=== PATIENT | male | born 1985 | race Caucasian/White ===

== ENCOUNTER 2016-08-16 04:41 | Inpatient (IN) | payer BC ==
[~2016-08-16] VITALS: Ht 188 cm; Wt 116.8 kg
[~2016-08-16 04:41] MED LIST: EPP3/2 IM
[2016-08-16] MEDS ORDERED: ALBUT/IPRATROP 3MG/0.5MG NEB 3 ML VIAL INH STA ×2 (05:02→06:13)
[2016-08-16] MEDS ORDERED: SODIUM CHLORIDE 0.9% 1000ML 1,000 ML IV STA (05:02)
[2016-08-16] MEDS ORDERED: METHYLPREDNISOLONE 125 MG VIAL IV STA (05:02)
[2016-08-16 05:58] LABS: BASO % 0.2 %; BASO ABS # 0.02 K/uL (0-0.2); COMPLETE YES; EOS % 2.2 %; HEMATOCRIT 41.2 % (42-52); IG% 0.2 %; LYMPH ABS # 0.61 K/uL (1.2-3.4); MEAN CELL VOLUME 80.9 fL (80-100); MEAN CORPUSCULAR HEMOGLOBIN 27.9 pg (25-34); MEAN CORPUSCULAR HGB CONC 34.5 g/dl (32-36); MEAN PLATELET VOLUME 9.6 fL (7.4-10.4); MONO % 8.4 %; PLATELET COUNT 215 K/uL (130-400); RED BLOOD COUNT 5.09 M/uL (4.7-6.1)
[2016-08-16 06:10] LABS: PARTIAL THROMBOPLASTIN RATIO 1.2; PROTHROMBIN TIME (PATIENT) 10.8 SECONDS (9.0-12.0)
[2016-08-16] MEDS ORDERED: CEFTRIAXONE SOD INJ 1 GM ADDVIAL IV STA (06:11)
[2016-08-16] MEDS ORDERED: OPTIRAY 320 IV PRN (06:15)
[2016-08-16] MEDS ORDERED: AZITHROMYCIN IV 500 MG in DEXTROSE 5% 250ML 250 ML IV ONE (06:15)
[2016-08-16 06:18] LABS: ALT/SGPT 48 U/L (12-78); AST/SGOT 19 U/L (15-37); BLOOD UREA NITROGEN 14 mg/dl (7-18); BUN/CREATININE RATIO 11.7 (10-20); CALCIUM 8.7 mg/dl (8.5-10.1); CARBON DIOXIDE 27 mmol/L (21-32); CHLORIDE 104 mmol/L (98-107); GLUCOSE 105 mg/dl (70-99); MAGNESIUM 2.4 mg/dl (1.8-2.4); POTASSIUM 4.1 mmol/L (3.5-5.1); SODIUM 140 mmol/L (136-145)
[2016-08-16 06:27] LABS: ALB/GLOB RATIO 0.8 (0.9-2); ALKALINE PHOSPHATASE 74 U/L (45-117)
--- NOTE | 2016-08-16 06:33 | DIAGNOSTIC IMAGING REPORT ---
TWO VIEW CHEST CLINICAL HISTORY: Dyspnea. Hypoxia. FINDINGS: PA and lateral chest radiographs are compared to study dated 03/16/2013. The cardiac silhouette is top normal for projection. There is patchy airspace consolidation the left mid to lower lung. Consolidation is also seen in the right middle lobe. No pleural effusion or pneumothorax is seen. The bony thorax appears intact. IMPRESSION: There is patchy airspace consolidation in the left mid to lower lung as well as the right middle lobe. The appearance suggests multifocal pneumonia. Clinical correlation will be required. Radiographic follow-up to resolution is recommended. Electronically signed by: Emmanuel Clements M.D. 08/16/2016 6:31 AM Dictated Date/Time: 08/16/2016 6:29 AM
--- NOTE | 2016-08-16 07:23 | DIAGNOSTIC IMAGING REPORT ---
CT ANGIOGRAM OF THE CHEST CLINICAL HISTORY: Chest congestion and pneumonia. COMPARISON STUDY: Chest x-ray dated 08/16/2016. TECHNIQUE: Following the IV administration of 93 cc of Optiray 320, CT angiogram of the chest was performed from the upper abdomen to the thoracic inlet utilizing the pulmonary embolus protocol. Images are reviewed in the axial, sagittal, and coronal planes. 3-D MIPS images are created and assessed. IV contrast was administered without complication. The examination is degraded by streak artifact from the right arm which could not be elevated above the chest. The examination is also degraded by motion artifact. CT DOSE: 623.66 mGy.cm FINDINGS: Thyroid: Imaged portions of the thyroid gland are normal in size and attenuation. Thoracic aorta: The thoracic aorta is normal in caliber and demonstrates standard 3-vessel arch anatomy. No aneurysm or dissection is seen. Pulmonary vasculature: The pulmonary trunk is normal in caliber. There are no filling defects identified in main, lobar, or proximal segmental pulmonary branches to suggest pulmonary embolus. Evaluation of the peripheral branches is degraded by motion artifact. Heart: The heart is normal in size and configuration, and without pericardial effusion. Lungs and pleural spaces: There is dense patchy airspace consolidation in the left upper lobe and lingula as well as the left lower lobe. More patchy airspace consolidation is present in the right upper and right lower lobes. There are trace pleural effusions. The trachea and central airways are clear. Mediastinum: There is no mediastinal lymphadenopathy. Shae: There are enlarged bilateral hilar lymph nodes which measure up to 1.3 cm in short axis. Axillae: There is no axillary lymphadenopathy. Upper abdomen: Partially visualized upper abdominal viscera is within normal limits. Skeletal structures: No lytic or blastic bony lesions are seen. IMPRESSION: 1. There is no evidence of pulmonary embolus in the main, lobar, or proximal segmental pulmonary arteries. 2. Findings are consistent with multifocal pneumonia as detailed above, left greater than right. Radiographic follow-up to resolution is recommended. 3. Trace pleural effusions. 4. Enlarged hilar lymph nodes are likely on a reactive basis. Electronically signed by: Emmanuel Clements M.D. 08/16/2016 7:21 AM Dictated Date/Time: 08/16/2016 7:17 AM
--- NOTE | 2016-08-16 07:38 | EMERGENCY ROOM VISIT NOTE ---
History First contact with patient: 04:54 Chief Complaint: CONGESTION Stated Complaint: CHEST CONGESTION Nursing Triage Summary: After first duoneb. History of Present Illness The patient is a 31 year old male who presents to the Emergency Department by private vehicle for evaluation of his difficulty with breathing and chest congestion. He reports that on Wednesday he developed a mild cough. He was out of town working in [place] and reports that he treated his symptoms conservatively as he felt that he would get better without issue. On he reported increasing cough and associated shortness of breath. He is also has been complaining of some ear pressure as well. He denies any recent sick contacts. He has had no fevers. He reports ongoing body aches. He has coughed to the point of becoming lightheaded and developing headaches. He reports no chest pain, however. He rates his current discomfort as a 1/10. He is been coughing up greenish sputum as well. He does admit to smoking daily. There is no family history of blood clots or bleeding disorders. He denies any blurry vision, double vision, slurred speech, facial droop, unilateral weakness/ numbness, chest pain, palpitations, hemoptysis, nausea, vomiting, abdominal pain , diarrhea, or dysuria. Review of Systems A complete 10-point Review of Systems was discussed with the patient, with pertinent positives and negatives listed in the History of Present Illness. All remaining Review of Systems questions can be considered negative unless otherwise specified. Past Medical/Surgical History Medical Problems: (1) Fatty liver (2) Gastroesophageal reflux disease (3) Hyperlipidemia Social History Smoking Status: Current Every Day Smoker Alcohol Use: none Drug Use: none Marital Status: in relationship Housing Status: lives with family Occupation Status: employed Current/Historical Medications Scheduled PRN Epinephrine (Epipen), 0.3 MG IM UD PRN for ALLERGIC REACTION Allergies Coded Allergies: Milk (Verified Allergy, Intermediate, GI SYMPTOMS, 08/16/16) BEE STING (Verified Allergy, Unknown, swelling, 08/16/16) Physical Exam Vital Signs Date Time Temp Pulse Resp B/P Pulse Ox O2 Delivery O2 Flow Rate FiO2 08/16/16 09:03 36.9 104 20 142/78 92 Nasal Cannula 2.0 08/16/16 08:46 93 18 137/80 93 Nasal Cannula 2.0 08/16/16 08:22 95 Nasal Cannula 2.0 08/16/16 07:29 107 08/16/16 07:11 110 24 137/74 95 Nasal Cannula 2.0 08/16/16 06:39 105 25 137/81 95 Nasal Cannula 3.0 08/16/16 05:00 104 08/16/16 04:52 92 Nasal Cannula 2.0 08/16/16 04:52 91 Nasal Cannula 2.0 08/16/16 04:45 88 Room Air 08/16/16 04:45 37.4 111 20 125/73 88 Room Air Pain Rating (0-10): 1 Physical Exam VITAL SIGNS - Vital signs and nursing notes were reviewed. GENERAL - Well nourished, well developed 31-year-old male appearing his in no acute distress. Pt communicates well with provider and answers questions appropriately. SKIN - Without rash. HEAD - NC/AT with no obvious deformities. EYES - PERRL with EOMI bilaterally. Sclera without injection. Palpebral conjunctiva pink and moist. EARS - No deformities of external structures noted on gross examination bilaterally. No pain elicited with palpation of the tragus bilaterally. External auditory canals without discharge or otorrhea. Tympanic membranes pearly hope without retraction or bulging. No fluid or purulent material visualized behind the TM. Handle of malleus, umbo, cone of light, pars tensa/ flaccid all easily visualized. NOSE - Midline and without cyanosis. No purulent drainage noted. Nasal mucosa with mild mucus discharge. MOUTH/OROPHARYNX - Without perioral cyanosis. Buccal mucosa pink and moist\ and without leukoplakia. Tongue midline with equal elevation of palate bilaterally. No tonsillar hypertrophy, erythema, or exudates noted. NECK - Neck with FROM. Supple to palpation. no lymphadenopathy noted. No nuchal rigidity. LUNGS - Chest wall symmetric with mild accessory muscle use. Tachypneic. Decreased breath sounds at the lung bases bilaterally. Inspiratory wheezes noted in the upper lung knapp. Positive egophony and whispered pectoriloquy noted to the LEFT mid axillary line. CARDIAC - RRR with S1/S2. No murmur, rubs, or gallops appreciated. ABDOMEN - Abdominal contour flat without pulsations or visible masses. BS normoactive all four quadrants. No tenderness, palpable masses, hepatosplenomegaly, or ascites noted. Medical Decision & Procedures ER Provider Diagnostic Interpretation: Radiological imaging and reports were reviewed by myself. Radiologist's Interpretation as follows: TWO VIEW CHEST CLINICAL HISTORY: Dyspnea. Hypoxia. FINDINGS: PA and lateral chest radiographs are compared to study dated 03/16/2013. The cardiac silhouette is top normal for projection. There is patchy airspace consolidation the left mid to lower lung. Consolidation is also seen in the right middle lobe. No pleural effusion or pneumothorax is seen. The bony thorax appears intact. IMPRESSION: There is patchy airspace consolidation in the left mid to lower lung as well as the right middle lobe. The appearance suggests multifocal pneumonia. Clinical correlation will be required. Radiographic follow-up to resolution is recommended. CT ANGIOGRAM OF THE CHEST CLINICAL HISTORY: Chest congestion and pneumonia. COMPARISON STUDY: Chest x-ray dated 08/16/2016. TECHNIQUE: Following the IV administration of 93 cc of Optiray 320, CT angiogram of the chest was performed from the upper abdomen to the thoracic inlet utilizing the pulmonary embolus protocol. Images are reviewed in the axial, sagittal, and coronal planes. 3-D MIPS images are created and assessed. IV contrast was administered without complication. The examination is degraded by streak artifact from the right arm which could not be elevated above the chest. The examination is also degraded by motion artifact. CT DOSE: 623.66 mGy.cm FINDINGS: Thyroid: Imaged portions of the thyroid gland are normal in size and attenuation. Thoracic aorta: The thoracic aorta is normal in caliber and demonstrates standard 3-vessel arch anatomy. No aneurysm or dissection is seen. Pulmonary vasculature: The pulmonary trunk is normal in caliber. There are no filling defects identified in main, lobar, or proximal segmental pulmonary branches to suggest pulmonary embolus. Evaluation of the peripheral branches is degraded by motion artifact. Heart: The heart is normal in size and configuration, and without pericardial effusion. Lungs and pleural spaces: There is dense patchy airspace consolidation in the left upper lobe and lingula as well as the left lower lobe. More patchy airspace consolidation is present in the right upper and right lower lobes. There are trace pleural effusions. The trachea and central airways are clear. Mediastinum: There is no mediastinal lymphadenopathy. Shae: There are enlarged bilateral hilar lymph nodes which measure up to 1.3 cm in short axis. Axillae: There is no axillary lymphadenopathy. Upper abdomen: Partially visualized upper abdominal viscera is within normal limits. Skeletal structures: No lytic or blastic bony lesions are seen. IMPRESSION: 1. There is no evidence of pulmonary embolus in the main, lobar, or proximal segmental pulmonary arteries. 2. Findings are consistent with multifocal pneumonia as detailed above, left greater than right. Radiographic follow-up to resolution is recommended. 3. Trace pleural effusions. 4. Enlarged hilar lymph nodes are likely on a reactive basis. Laboratory Results 08/16/16 05:25 Red Blood Count 5.09, Mean Corpuscular Volume 80.9, Mean Corpuscular Hemoglobin 27.9, Mean Corpuscular Hemoglobin Concent 34.5, Mean Platelet Volume 9.6, Neutrophils (%) (Auto) 82.0, Lymphocytes (%) (Auto) 7.0, Monocytes (%) (Auto) 8.4, Eosinophils (%) (Auto) 2.2, Basophils (%) (Auto) 0.2, Neutrophils # (Auto) 7.13, Lymphocytes # (Auto) 0.61, Monocytes # (Auto) 0.73, Eosinophils # (Auto) 0.19, Basophils # (Auto) 0.02 08/16/16 05:25 Test 08/16/16 00:00 08/16/16 05:25 08/16/16 05:29 08/16/16 05:50 Influenza Type A Antigen Neg for Influ A (NEG) Influenza Type B Antigen Neg for Influ B (NEG) White Blood Count 8.70 K/uL (4.8-10.8) Red Blood Count 5.09 M/uL (4.7-6.1) Hemoglobin 14.2 g/dL (14.0-18.0) Hematocrit 41.2 % (42-52) Mean Corpuscular Volume 80.9 fL (80-100) Mean Corpuscular Hemoglobin 27.9 pg (25-34) Mean Corpuscular Hemoglobin Concent 34.5 g/dl (32-36) Platelet Count 215 K/uL (130-400) Mean Platelet Volume 9.6 fL (7.4-10.4) Neutrophils (%) (Auto) 82.0 % Lymphocytes (%) (Auto) 7.0 % Monocytes (%) (Auto) 8.4 % Eosinophils (%) (Auto) 2.2 % Basophils (%) (Auto) 0.2 % Neutrophils # (Auto) 7.13 K/uL (1.4-6.5) Lymphocytes # (Auto) 0.61 K/uL (1.2-3.4) Monocytes # (Auto) 0.73 K/uL (0.11-0.59) Eosinophils # (Auto) 0.19 K/uL (0-0.5) Basophils # (Auto) 0.02 K/uL (0-0.2) RDW Standard Deviation 40.7 fL (36.4-46.3) RDW Coefficient of Variation 13.6 % (11.5-14.5) Immature Granulocyte % (Auto) 0.2 % Immature Granulocyte # (Auto) 0.02 K/uL (0.00-0.02) Prothrombin Time 10.8 SECONDS (9.0-12.0) Prothromb Time International Ratio 1.0 (0.9-1.1) Activated Partial Thromboplast Time 32.1 SECONDS (21.0-31.0) Partial Thromboplastin Ratio 1.2 Anion Gap 9.0 mmol/L (3-11) Est Creatinine Clear Calc Drug Dose 121.2 ml/min Estimated GFR () 92.8 Estimated GFR (Non- 80.1 BUN/Creatinine Ratio 11.7 (10-20) Calcium Level 8.7 mg/dl (8.5-10.1) Magnesium Level 2.4 mg/dl (1.8-2.4) Total Bilirubin 0.7 mg/dl (0.2-1) Aspartate Amino Transf (AST/SGOT) 19 U/L (15-37) Alanine Aminotransferase (ALT/SGPT) 48 U/L (12-78) Alkaline Phosphatase 74 U/L (45-117) Total Creatine Kinase 171 U/L (39-308) Creatine Kinase MB < 0.5 ng/ml (0.5-3.6) Creatine Kinase MB Ratio (0-3.0) C-Reactive Protein 12.90 mg/dl (0-0.29) Total Protein 7.5 gm/dl (6.4-8.2) Albumin 3.4 gm/dl (3.4-5.0) Globulin 4.1 gm/dl (2.5-4.0) Albumin/Globulin Ratio 0.8 (0.9-2) Lipase 168 U/L (73-393) Procalcitonin 0.09 ng/mL (0-0.5) Thyroid Stimulating Hormone (TSH) 1.040 uIu/ml (0.300-4.500) Bedside Lactic Acid Venous 0.68 mmol/L (0.90-1.70) Bedside D-Dimer > 450 ng/mlFEU (0-450) Bedside Troponin I 0.000 ng/ml (0-0.045) Test 08/16/16 07:30 Urine Color YELLOW Urine Appearance CLEAR (CLEAR) Urine pH 5.0 (4.5-7.5) Urine Specific [place] 1.039 (1.000-1.030) Urine Protein NEG (NEG) Urine Glucose (UA) NEG (NEG) Urine Ketones NEG (NEG) Urine Occult Blood NEG (NEG) Urine Nitrite NEG (NEG) Urine Bilirubin NEG (NEG) Urine Urobilinogen NEG (NEG) Urine Leukocyte Esterase NEG (NEG) Medications Administered Medications (Trade) Dose Ordered Sig/Donavon Route Start Time Stop Time Status Last Admin Dose Admin Sodium Chloride (Nss 1000ml) 1,000 ml @ 999 mls/hr Q1H1M STAT IV 08/16/16 05:02 08/16/16 06:02 DC 08/16/16 05:28 999 MLS/HR Albuterol/ Ipratropium (Duoneb) 3 ml NOW STAT INH 08/16/16 05:02 08/16/16 05:05 DC 08/16/16 05:28 3 ML Methylprednisolone Sodium Succinate (Solu-Medrol IV) 125 mg NOW STAT IV 08/16/16 05:02 08/16/16 05:05 DC 08/16/16 05:28 125 MG Ceftriaxone Sodium 1 gm 1 gm NOW STAT IV 08/16/16 06:11 08/16/16 06:13 DC 08/16/16 06:24 1 GM Azithromycin/ Dextrose (Zithromax IV/D5 250ml) 255 ml @ 125 mls/hr ONE ONCE IV 08/16/16 06:15 08/16/16 08:17 DC 08/16/16 07:49 125 MLS/HR Albuterol/ Ipratropium (Duoneb) 3 ml NOW STAT INH 08/16/16 06:13 08/16/16 06:14 DC 08/16/16 06:24 3 ML Procedure Patient was placed on the diagnostic cardiac sonographer and monitored throughout the entire extent of their stay. In addition, the patient's pulse oximetry was monitored throughout the entire stay. Any abnormalities or aberrancies were addressed appropriately. ECG Indication: SOB/dyspnea Rate (beats per minute): 107 Rhythm: sinus tachycardia Findings: no acute ischemic change, no ectopy Change: no significant change (from 05/09/2013.) ED Course Patient was seen and evaluated by myself. Labs were drawn, saline lock in place. EKG and chest x-rays were obtained. The patient was placed on 2 L nasal cannula secondary to hypoxia with an oxygen saturation of 88% on room air. Blood cultures were obtained. Patient was hydrated with a 1000 mL normal saline bolus. He received 1 DuoNeb and was treated with 125 mg Solu-Medrol intravenously. Patient was reevaluated and has slight more air movement in the lower bases of the lungs with increasing wheezing. He is still mildly tachypneic. Chest x-ray results concerning for bilateral pneumonia. Patient was treated with 1 g of Rocephin and 500 mg azithromycin. Laboratory results demonstrate no acute leukocytosis, worrisome anemia, or bandemia. The patient has no significant electrolyte abnormalities. CRP is minimally elevated. Troponin and cardiac enzymes were negative. Influenza is negative. Lactic acid was negative. D-dimer was moderately elevated. CTA of the chest was obtained. He was treated with a second DuoNeb for his breathing. Patient had increasing breath sounds and mildly increased wheeze after second breathing treatment. He feels much better. Clinically, the patient looks much better. CTA results above. Laboratory results and imaging studies were reviewed with the patient and family who acknowledges understanding. Patient will be admitted to the [facility] service for further evaluation and management. Patient admitted in stable condition. Medical Decision Given the patient's presentation and exam findings, I did elect to perform the above-mentioned workup. The patient presents today with increasing shortness of breath and cough. The patient is hypoxic. He is tachycardic. He is not febrile. He has no leukocytosis. His chest x-ray was concerning for consolidated LEFT-sided pneumonia and possible RIGHT-sided pneumonia as well. He was aggressively managed with intravenous antibiotics given his significant pneumonia with associated hypoxia. The patient took 2 DuoNeb treatments until he was with better movement of air. He still remains mildly tachypneic. CTA rules out vascular abnormality, however does suggest worsening multifocal pneumonia. At this point, the patient warrants inpatient management for IV antibiotics, steroids, and continued pulmonary toilet. The patient was admitted in stable condition. In the evaluation and treatment of this patient, the following differential diagnoses were considered: DE, ASC, Dysrhythmia, Angina, Mediastinitis, GERD, Esophagitis, PE, Pneumonia, Bronchitis, Costochondritis, Rib Fracture, Zoster. Impression Primary Impression: Multifocal pneumonia Additional Impression: Hypoxia Departure Information Dispostion Admitted as an inpatient Condition FAIR Referrals No Doctor, Assigned (PCP) Patient Instructions [facility] Problem Qualifiers
[2016-08-16 07:46] LABS: URINE APPEARANCE CLEAR (CLEAR); URINE BILIRUBIN NEG (NEG); URINE COLOR YELLOW; URINE NITRITE NEG (NEG); URINE SPECIFIC GRAVITY 1.039 (1.000-1.030); UROBILINOGEN NEG (NEG); ZZUR CULT IF INDIC CLEAN CATCH NO
[2016-08-16 07:52] LABS: MANUAL MICROSCOPIC REQUIRED? NO; REVIEW REQ? NO
[2016-08-16] MEDS ORDERED: ALBUTEROL 0.083% NEBU SOLN 3 ML VIAL INH PRN (08:00)
[2016-08-16] MEDS ORDERED: ACETAMINOPHEN 325 MG TAB PO PRN (08:00)
[2016-08-16] MEDS ORDERED: ONDANSETRON INJ 2 MG/ML 2 ML VIAL IV PRN (08:00)
[2016-08-16 08:22] VITALS: O2SAT 95; Ht 188 cm; Wt 116.8 kg
[2016-08-16 09:03] VITALS: BP 142/78; PULSE 104; TEMP 36.9; O2SAT 92
[2016-08-16] MEDS: NICOTINE 14 MG/24 HR TDSY TD SCH (12:58)
[2016-08-16] MEDS: ENOXAPARIN 40 MG/0.4 ML SYR SQ SCH (12:59)
[2016-08-16 15:33] VITALS: BP 150/88; PULSE 115; TEMP 36.3; O2SAT 91
--- NOTE | 2016-08-16 15:43 | History and Physical ---
History & Physical Date & Time of Service: Aug 16, 2016 at 15:32 Chief Complaint: Multifocal Pneumonia Primary Care Physician: No Doctor, Assigned History of Present Illness Source: patient, hospital records Patient is a 31 y/o male who presents with worsening SOB over the past couple of days. Patient notes worsening SOB, cough and body aches for the past several days. He used his mother's albuterol inhaler without significant relief of symptoms. He denies any fevers, chills, nausea, vomiting, diarrhea. In the ED, CT chest was notable for multifocal pneumonia. Patient was given a nebulizer, methylprednisolone, ceftriaxone and azithromycin. Past Medical/Surgical History Medical Problems: (1) Fatty liver Status: Chronic (2) Gastroesophageal reflux disease Status: Chronic (3) Hyperlipidemia Status: Chronic Social History Smoking Status: Current Every Day Smoker Drug Use: none Marital Status: in relationship Occupational Status: employed Multi-Drug Resistant Organisms History of MDRO: No Allergies Coded Allergies: Milk (Verified Allergy, Intermediate, GI SYMPTOMS, 08/16/16) BEE STING (Verified Allergy, Unknown, swelling, 08/16/16) Home Medications Scheduled PRN Epinephrine (Epipen), 0.3 MG IM UD PRN for ALLERGIC REACTION Review of Systems Constitutional- denies fevers or chills Eyes- denies blurry vision or double vision ENT- denies congestion or sore throat Pulmonary- +SOB and cough Cardiac- denies chest pain or palpitations GI- denies abdominal pain, nausea, vomiting, diarrhea - denies dysuria or hematuria Musculoskeletal- denies joint pain or swelling Dermatologic- denies rash or bruising Neuro- denies focal weakness, numbness or tingling Psych- denies depression or anxiety . Physical Exam Vital Signs Date Time Temp Pulse Resp B/P Pulse Ox O2 Delivery O2 Flow Rate FiO2 08/16/16 09:10 Nasal Cannula 2.0 08/16/16 09:03 36.9 104 20 142/78 92 Nasal Cannula 2.0 08/16/16 08:46 93 18 137/80 93 Nasal Cannula 2.0 08/16/16 08:22 95 Nasal Cannula 2.0 08/16/16 07:29 107 08/16/16 07:11 110 24 137/74 95 Nasal Cannula 2.0 08/16/16 06:39 105 25 137/81 95 Nasal Cannula 3.0 08/16/16 05:00 104 1/15/17 04:52 92 Nasal Cannula 2.0 08/16/16 04:52 91 Nasal Cannula 2.0 08/16/16 04:45 88 Room Air 08/16/16 04:45 37.4 111 20 125/73 88 Room Air General- awake; alert; NAD Eyes- EOMI; no scleral icterus Neck- no stridor; trachea midline Lungs- diminished breath sounds at the bases Heart- RRR; no m/r/g Abdomen- soft; NTND; nBS Back- no gross abnormalities Extremities- no c/c/e; no deformity Neuro- no gross focal deficits Skin- no appreciable rash or bruise . Diagnostics Laboratory Results Results Past 24 Hours Test 08/16/16 00:00 08/16/16 05:25 08/16/16 05:29 08/16/16 05:50 Range/Units Influenza Type A Antigen Neg for Influ A NEG Influenza Type B Antigen Neg for Influ B NEG White Blood Count 8.70 4.8-10.8 K/uL Red Blood Count 5.09 4.7-6.1 M/uL Hemoglobin 14.2 14.0-18.0 g/dL Hematocrit 41.2 42-52 % Mean Corpuscular Volume 80.9 80-100 fL Mean Corpuscular Hemoglobin 27.9 25-34 pg Mean Corpuscular Hemoglobin Concent 34.5 32-36 g/dl Platelet Count 215 130-400 K/uL Mean Platelet Volume 9.6 7.4-10.4 fL Neutrophils (%) (Auto) 82.0 % Lymphocytes (%) (Auto) 7.0 % Monocytes (%) (Auto) 8.4 % Eosinophils (%) (Auto) 2.2 % Basophils (%) (Auto) 0.2 % Neutrophils # (Auto) 7.13 1.4-6.5 K/uL Lymphocytes # (Auto) 0.61 1.2-3.4 K/uL Monocytes # (Auto) 0.73 0.11-0.59 K/uL Eosinophils # (Auto) 0.19 0-0.5 K/uL Basophils # (Auto) 0.02 0-0.2 K/uL RDW Standard Deviation 40.7 36.4-46.3 fL RDW Coefficient of Variation 13.6 11.5-14.5 % Immature Granulocyte % (Auto) 0.2 % Immature Granulocyte # (Auto) 0.02 0.00-0.02 K/uL Prothrombin Time 10.8 9.0-12.0 SECONDS Prothromb Time International Ratio 1.0 0.9-1.1 Activated Partial Thromboplast Time 32.1 21.0-31.0 SECONDS Partial Thromboplastin Ratio 1.2 Sodium Level 140 136-145 mmol/L Potassium Level 4.1 3.5-5.1 mmol/L Chloride Level 104 98-107 mmol/L Carbon Dioxide Level 27 21-32 mmol/L Anion Gap 9.0 3-11 mmol/L Blood Urea Nitrogen 14 7-18 mg/dl Creatinine 1.20 0.60-1.40 mg/dl Est Creatinine Clear Calc Drug Dose 121.2 ml/min Estimated GFR () 92.8 Estimated GFR (Non- 80.1 BUN/Creatinine Ratio 11.7 10-20 Random Glucose 105 70-99 mg/dl Calcium Level 8.7 8.5-10.1 mg/dl Magnesium Level 2.4 1.8-2.4 mg/dl Total Bilirubin 0.7 0.2-1 mg/dl Aspartate Amino Transf (AST/SGOT) 19 15-37 U/L Alanine Aminotransferase (ALT/SGPT) 48 12-78 U/L Alkaline Phosphatase 74 45-117 U/L Total Creatine Kinase 171 39-308 U/L Creatine Kinase MB < 0.5 0.5-3.6 ng/ml Creatine Kinase MB Ratio 0-3.0 C-Reactive Protein 12.90 0-0.29 mg/dl Total Protein 7.5 6.4-8.2 gm/dl Albumin 3.4 3.4-5.0 gm/dl Globulin 4.1 2.5-4.0 gm/dl Albumin/Globulin Ratio 0.8 0.9-2 Lipase 168 73-393 U/L Procalcitonin 0.09 0-0.5 ng/mL Thyroid Stimulating Hormone (TSH) 1.040 0.300-4.500 uIu/ml Bedside Lactic Acid Venous 0.68 0.90-1.70 mmol/L Bedside D-Dimer > 450 0-450 ng/mlFEU Bedside Troponin I 0.000 0-0.045 ng/ml Test 08/16/16 07:30 Range/Units Urine Color YELLOW Urine Appearance CLEAR CLEAR Urine pH 5.0 4.5-7.5 Urine Specific Economy 1.039 1.000-1.030 Urine Protein NEG NEG Urine Glucose (UA) NEG NEG Urine Ketones NEG NEG Urine Occult Blood NEG NEG Urine Nitrite NEG NEG Urine Bilirubin NEG NEG Urine Urobilinogen NEG NEG Urine Leukocyte Esterase NEG NEG Microbiology Results 08/16/16 Blood Culture, Received Pending 08/16/16 Blood Culture, Received Pending Diagnostic Radiology CT Chest 1. There is no evidence of pulmonary embolus in the main, lobar, or proximal segmental pulmonary arteries. 2. Findings are consistent with multifocal pneumonia as detailed above, left greater than right. Radiographic follow-up to resolution is recommended. 3. Trace pleural effusions. 4. Enlarged hilar lymph nodes are likely on a reactive basis. Normal EKG Impression Assessment and Plan Patient is a 31 y/o male who presents with worsening SOB and cough. Multifocal pneumonia - noted on CT chest - continue azithromycin and ceftriaxone - received dose of methylprednisolone in ED; will not continue - continue nebulizer PRN - wean supplemental oxygen as able Tobacco use - nicotine patch - smoking cessation DVT prophylaxis with enoxaparin sq Advanced Directives Existing Advance Directive: No Existing Living Will: No Existing Power of Nurses' Registry Director: No VTE Prophylaxis VTE Risk Assessment Done? Y/N: Yes Risk Level: Low
[2016-08-16 17:59] VITALS: PULSE 84; O2SAT 94
[2016-08-16 21:10] VITALS: BP 123/72; PULSE 68
[2016-08-16 23:28] VITALS: BP 148/87; PULSE 69; TEMP 36.8; O2SAT 96
[2016-08-17] MEDS: NICOTINE 14 MG/24 HR TDSY TD SCH (07:28)
[2016-08-17] MEDS: AZITHROMYCIN 250 MG TAB PO SCH (07:28)
[2016-08-17] MEDS: CEFTRIAXONE SOD INJ 1 GM in DEXTROSE 5% ADD-VANTAGE 50ML 50 ML IV SCH (07:28)
[2016-08-17 07:39] VITALS: BP 124/75; PULSE 82; TEMP 36.7; O2SAT 91
[2016-08-17] MEDS ORDERED: GUAIFENESIN/CODEINE 100MG/10MG 5ML UDC PO PRN (10:15)
[2016-08-17] MEDS ORDERED: GUAIFENESIN 600 MG TABCR PO SCH (10:15)
[2016-08-17] MEDS: GUAIFENESIN 600 MG TABCR PO SCH ×2 (11:04→21:10)
[2016-08-17] MEDS ORDERED: COUGH DROP (SUGAR FREE) LOZ 24 LOZ/1 BOX ONE (11:07)
[2016-08-17] MEDS ORDERED: COUGH DROP (SUGAR FREE) LOZ 24 LOZ/1 BOX PO PRN (11:15)
[2016-08-17] MEDS ORDERED: NURSING DECISION MEDICATION ORDER SCH (11:15)
[2016-08-17 12:55] VITALS: O2SAT 92
--- NOTE | 2016-08-17 13:35 | Progress Note ---
Medicine Progress Note Date & Time of Visit: Aug 17, 2016 at 13:27. Subjective Patient seen and examined. Feeling a bit better today. Cough has somewhat improved. Still notes ROSE with minimal activity. Objective Last 8 Hrs Date Time Temp Pulse Resp B/P Pulse Ox O2 Delivery O2 Flow Rate FiO2 08/17/16 12:55 92 Nasal Cannula 1.0 08/17/16 08:00 Nasal Cannula 2.0 08/17/16 07:39 36.7 82 26 124/75 91 Physical Exam: General-awake; alert; NAD Eyes-EOMI; no scleral icterus Neck-no stridor; trachea midline Lungs-bibasilar crackles Heart-RRR; no m/r/g Abdomen-soft; NTND; nBS Extremities-no c/c/e; no deformity Neuro-no gross focal deficits Assessment & Plan Patient is a 31 y/o male who presented with worsening SOB and cough. Multifocal pneumonia - noted on CT chest - continue azithromycin and ceftriaxone (started 08/16/16) - received dose of methylprednisolone in ED; will not continue - continue nebulizer PRN - wean supplemental oxygen as able - cough suppressants and expectorants Tobacco use - nicotine patch - smoking cessation DVT prophylaxis with enoxaparin sq Anticipate possible discharge tomorrow. Procedures: CT chest 1. There is no evidence of pulmonary embolus in the main, lobar, or proximal segmental pulmonary arteries. 2. Findings are consistent with multifocal pneumonia as detailed above, left greater than right. Radiographic follow-up to resolution is recommended. 3. Trace pleural effusions. 4. Enlarged hilar lymph nodes are likely on a reactive basis. Current Inpatient Medications: Current Inpatient Medications Medications (Trade) Dose Ordered Sig/Donavon Route Start Time Stop Time Status Last Admin Dose Admin Ioversol (Optiray 320) 100 ml UD PRN IV 08/16/16 06:15 08/20/16 06:14 Enoxaparin Sodium (Lovenox Inj) 40 mg Q24H SQ 08/16/16 14:00 09/15/16 13:59 Acetaminophen (Tylenol Tab) 650 mg Q4H PRN PO 08/16/16 08:00 09/15/16 07:59 Ondansetron HCl 4 mg 4 mg Q6H PRN IV 08/16/16 08:00 09/15/16 07:59 Ceftriaxone Sodium/Dextrose (Rocephin Inj/ Dextrose Add-Revere 50ML) 50 ml @ 100 mls/hr Q24H IV 08/17/16 08:00 08/24/16 07:59 08/17/16 07:28 100 MLS/HR Azithromycin (Zithromax Tab) 500 mg QAM PO 08/17/16 09:00 08/24/16 08:59 08/17/16 07:28 500 MG Albuterol Sulfate (Ventolin 0.083% 2.5MG/3ML Neb) 2.5 mg Q6R PRN INH 08/16/16 08:00 09/15/16 07:59 08/16/16 17:59 2.5 MG Benzonatate (Tessalon Perles Cap) 100 mg TID PO 08/17/16 14:00 09/16/16 13:59 Codeine Phosphate/ Guaifenesin (Robitussin-AC Sugar Free Syrup) 5 ml Q6H PRN PO 08/17/16 10:15 09/16/16 10:14 Guaifenesin (Mucinex Contr Rel Tab) 600 mg Q12 PO 08/17/16 11:00 09/16/16 10:59 08/17/16 11:04 600 MG Nicotine (Nicoderm Cq 14MG Patch) 1 patch QAM TD 08/18/16 09:00 09/17/16 08:59 Miscellaneous (Remove Nicoderm Patch) 1 ea HS N/A 08/17/16 21:00 09/16/16 20:59 Menthol (Nice Jose Alberto) 1 jsoe alberto PRN PRN PO 08/17/16 11:15 09/16/16 11:14
[2016-08-17] MEDS: BENZONATATE 100MG CAP PO SCH ×2 (13:46→21:10)
[2016-08-17] MEDS: ENOXAPARIN 40 MG/0.4 ML SYR SQ SCH (13:46)
[2016-08-17 14:46] VITALS: BP 138/89; PULSE 90; TEMP 36.8; O2SAT 91
[2016-08-17 16:00] VITALS: O2SAT 91
[2016-08-18 00:39] VITALS: BP 129/81; PULSE 76; TEMP 36.6; O2SAT 95
[2016-08-18] MEDS: GUAIFENESIN 600 MG TABCR PO SCH (07:27)
[2016-08-18] MEDS: BENZONATATE 100MG CAP PO SCH (07:27)
[2016-08-18] MEDS: CEFTRIAXONE SOD INJ 1 GM in DEXTROSE 5% ADD-VANTAGE 50ML 50 ML IV SCH (07:27)
[2016-08-18 07:28] VITALS: BP 128/89; PULSE 87; TEMP 36.7; O2SAT 93
[2016-08-18] MEDS: AZITHROMYCIN 250 MG TAB PO SCH (07:28)
[2016-08-18 08:14] VITALS: O2SAT 93
[2016-08-18] MEDS ORDERED: NICOTINE 14 MG/24 HR TDSY TD SCH (09:00)
[2016-08-18] MEDS ORDERED: NICO14DI5 TD (09:09)
[2016-08-18] MEDS ORDERED: ZTHM250 PO (09:09)
--- NOTE | 2016-08-18 09:13 | Discharge Instructions ---
Discharge Instructions Admission Reason for Admission: Multifocal Pneumonia Discharge Discharge Diagnosis / Problem: Pneumonia Discharge Goals Goal(s): Improve disease control Activity Recommendations Activity Limitations: resume your previous activity . Instructions / Follow-Up Instructions / Follow-Up Please follow up with Family Medicine Dr. Doe on August 24 at 9:10am. Current Hospital Diet Patient's current hospital diet: Regular Diet Discharge Diet Recommended Diet: Regular Diet Pending Studies Studies pending at discharge: no Work Instructions Return To Work: after follow-up Additional Instructions: Please excuse Mr. Alaniz from work duties from 08/16/16 until his hospital dischage follow up appointment on 08/24/16. Medical Emergencies . Who to Call and When: Medical Emergencies: If at any time you feel your situation is an emergency, please call 911 immediately. . Non-Emergent Contact Non-Emergency issues call your: Primary Care Provider . . "Provider Documentation" section prepared by Pina Ness. VTE Core Measure Inpt VTE Proph given/why not?: Refusal of treatmnt by pt
[2016-08-18 09:15] VITALS: BP 128/89; PULSE 87; TEMP 36.7; O2SAT 93
--- NOTE | 2016-08-18 09:31 | Discharge Summary ---
Discharge Summary Admission Date: Aug 16, 2016 at 08:05 Discharge Date: Aug 18, 2016 Discharge Disposition: Home Principal Diagnosis: Multifocal pneumonia Procedures: CT chest 1. There is no evidence of pulmonary embolus in the main, lobar, or proximal segmental pulmonary arteries. 2. Findings are consistent with multifocal pneumonia as detailed above, left greater than right. Radiographic follow-up to resolution is recommended. 3. Trace pleural effusions. 4. Enlarged hilar lymph nodes are likely on a reactive basis. Medication Reconciliation New Medications: Azithromycin (Azithromycin) 250 Mg Tab 1 TAB PO DAILY for 4 Days, #4 TABS Nicotine (Nicoderm Cq 14MG Patch) 14 Mg/24 Hr Dis 1 PATCH TD DAILY for 30 Days, #30 PATCH Continued Medications: Epinephrine (Epipen) 0.3 Mg/0.3 Ml Inj 0.3 MG IM UD PRN for ALLERGIC REACTION Admission Information HPI (per Admitting provider): Patient is a 31 y/o male who presents with worsening SOB over the past couple of days. Patient notes worsening SOB, cough and body aches for the past several days. He used his mother's albuterol inhaler without significant relief of symptoms. He denies any fevers, chills, nausea, vomiting, diarrhea. In the ED, CT chest was notable for multifocal pneumonia. Patient was given a nebulizer, methylprednisolone, ceftriaxone and azithromycin. Physical Exam (per Admitting): General- awake; alert; NAD Eyes- EOMI; no scleral icterus Neck- no stridor; trachea midline Lungs- diminished breath sounds at the bases Heart- RRR; no m/r/g Abdomen- soft; NTND; nBS Back- no gross abnormalities Extremities- no c/c/e; no deformity Neuro- no gross focal deficits Skin- no appreciable rash or bruise . Hospital Course Patient is a 31 y/o male who presented with worsening SOB and cough. CT chest was notable for multifocal pneumonia; negative for PE. Blood cultures were negative. Patient was started on azithromycin and ceftriaxone for CAP. Patient was weaned off supplemental oxygen and a 2 step done prior to discharge showed that saturations were stable on room air. Patient was started on a nicotine patch and counseled on smoking cessation. Patient deemed stable for discharge with Family Medicine follow up. PE on discharge: General- awake; alert; NAD Eyes- EOMI; no scleral icterus Neck- no stridor; trachea midline Lungs- scant crackles at the bases bilaterally Heart- RRR; no m/r/g Abdomen- soft; NTND; nBS Back- no gross abnormalities Extremities- no c/c/e; no deformity Neuro- no gross focal deficits Skin- no appreciable rash or bruise . Total time spent on discharge = This includes examination of the patient, discharge planning, medication reconciliation, and communication with other providers. Discharge Instructions Discharge Instructions Admission Reason for Admission: Multifocal Pneumonia Discharge Discharge Diagnosis / Problem: Pneumonia Discharge Goals Goal(s): Improve disease control Activity Recommendations Activity Limitations: resume your previous activity . Instructions / Follow-Up Instructions / Follow-Up Please follow up with Family Medicine Dr. Doe on August 24 at 9:10am. Current Hospital Diet Patient's current hospital diet: Regular Diet Discharge Diet Recommended Diet: Regular Diet Pending Studies Studies pending at discharge: no Work Instructions Return To Work: after follow-up Additional Instructions: Please excuse Mr. Alaniz from work duties from 08/16/16 until his hospital dischage follow up appointment on 08/24/16. Medical Emergencies . Who to Call and When: Medical Emergencies: If at any time you feel your situation is an emergency, please call 911 immediately. . Non-Emergent Contact Non-Emergency issues call your: Primary Care Provider . . "Provider Documentation" section prepared by Pina Ness. VTE Core Measure Inpt VTE Proph given/why not?: Refusal of treatmnt by pt Additional Copies To Ana Doe D.O.
== END 2016-08-18 10:31 | disposition home or self-care (01) | DRG 195 ==
LOC: ENRESERVTM → ENRESERVDT → C.EDB 04:42 → C.MED 08:05
PROVIDERS: ADMIT Internal Medicine; ATTEND Internal Medicine
DX: J18.9 Pneumonia, unspecified organism (principal); E78.5 Hyperlipidemia, unspecified; K21.9 Gastro-esophageal reflux disease without esophagitis; K76.0 Fatty (change of) liver, not elsewhere classified; F17.210 Nicotine dependence, cigarettes, uncomplicated

== ENCOUNTER 2023-09-28 23:37 | Observation (INO) ==
[2023-09-29 00:19] LABS: Basophils # (auto) 0.05 K/uL (0.00-0.20); Basophils % (auto) 0.6 %; Eosinophils # (auto) 0.16 K/uL (0.00-0.50); Eosinophils % (auto) 2.1 %; Hematocrit (blood only) 44.6 % (42.0-52.0); Immature Granulocytes # (auto) 0.02 K/uL (0.01-0.20); Immature Granulocytes % (auto) 0.3 %; Lymphocytes # (auto) 2.24 K/uL (1.20-3.40); Lymphocytes % (auto) 28.8 %; Mean Corpuscular Hemoglobin 27.3 pg (25.0-34.0); Mean Corpuscular Hgb Conc 33.6 g/dL (32.0-36.0); Mean Corpuscular Volume 81.2 fL (80.0-100.0); Mean Platelet Volume 10.7 fL (9.4-12.4); Monocytes # (auto) 0.59 K/uL (0.11-0.59); Monocytes % (auto) 7.6 %; Neutrophils # (auto) 4.71 K/uL (1.40-6.50); Neutrophils % (auto) 60.6 %; Platelet Count 238 K/uL (130-400); RDW Coefficient of Variation 13.2 % (11.5-14.5); RDW Standard Deviation 38.8 fL (36.4-46.3); Red Blood Count 5.49 M/uL (4.70-6.10); White Blood Count 7.77 K/ul (4.8-10.8)
[2023-09-29 00:27] LABS: Alanine Aminotransferase 17 U/L (7-52); Albumin Globulin Ratio 1.7 (0.9-2); Albumin Level 4.3 gm/dl (3.4-5.0); Alkaline Phosphatase 63 U/L (34-104); Anion Gap 7 (3-11); Aspartate Aminotransferase 11 U/L (13-39); BUN Creatinine Ratio 19.6 (10-20); Bilirubin,Total 0.5 mg/dl (0.2-1.0); Blood Urea Nitrogen 18 mg/dl (6-23); Calcium 9.4 mg/dl (8.6-10.3); Carbon Dioxide 22 mmol/L (21-32); Chloride 108 mmol/L (98-107); Creatinine Clr Calc Pharmacy 155.2 ml/min; Est GFR (African American) 121.9 ml/min; Est GFR (Non-African American) 105.1 ml/min; Globulin 2.6 gm/dl (2.5-4.0); Glucose 97 mg/dl (70-99(Fasting)); Potassium 3.7 mmol/L (3.5-5.1); Sodium 137 mmol/L (136-145); Total Protein 6.9 gm/dl (6.0-8.3)
[2023-09-29 00:34] LABS: Troponin I High Sensitivity < 2.3 pg/ml (0-20)
[2023-09-29] MEDS: ASPIRIN 81 MG CHEW PO STA (00:56)
[2023-09-29] MEDS: NITROGLYCERIN 2% OINTMENT 30GM TUBE EXT ONE (00:56)
[2023-09-29] MEDS: SODIUM CHLORIDE 0.9% 1,000 ML IV SCH (00:57)
[2023-09-29 01:00] LABS: D Dimer < 190 ug/L FEU (0-500)
[2023-09-29 01:10] LABS: INR 0.9 (0.9-1.1); Partial Thromboplastin Ratio 1.2; Partial Thromboplastin Time 33 Seconds (21-31); Prothrombin Time 10.4 Seconds (9.0-12.0)
[2023-09-29 02:01] LABS: Adenovirus PCR Not Detected (NotDetected); Bordetella parapertussis PCR Not Detected (NotDetected); Bordetella pertussis PCR Not Detected (NotDetected); Chlamydia pneumoniae PCR Not Detected (NotDetected); Coronavirus 229E PCR Not Detected (NotDetected); Coronavirus CoV-2 (COVID19)PCR Not Detected (NotDetected); Coronavirus HKU1 PCR Not Detected (NotDetected); Coronavirus NL63 PCR Not Detected (NotDetected); Coronavirus OC43PCR Not Detected (NotDetected); Human Metapneumovirus PCR Not Detected (NotDetected); Influenza A PCR Not Detected (NotDetected); Influenza B PCR Not Detected (NotDetected); Mycoplasma pneumoniae PCR Not Detected (NotDetected); Parainfluenza Virus 1 PCR Not Detected (NotDetected); Parainfluenza Virus 2 PCR Not Detected (NotDetected); Parainfluenza Virus 3 PCR Not Detected (NotDetected); Parainfluenza Virus 4 PCR Not Detected (NotDetected); Respiratory Syncytial VirusPCR Not Detected (NotDetected); Rhinovirus/Enterovirus PCR Not Detected (NotDetected)
--- NOTE | 2023-09-29 03:55 | Emergency Department Note ---
History of Present Illness General Chief complaint: Chest Pain Stated complaint: CHEST PAIN,PAIN IN JAW DOWN THROUGH NECK Time Seen by Provider: 09/29/23 00:35 History of Present Illness Maximum Pain Intensity: 7 This is a 38-year-old male presenting to the emergency department for evaluation of central left-sided chest pain that may radiate into his jaw. The patient has had symptoms off and on for about 24 hours, and seem to have started when he got up from sleep. The patient himself does not have significant cardiac history, however his father from heart attack at 64 years old. The patient does not have any recent travel history. No fevers or chills. He has not taken anything [id number] for his symptoms which he rates a 7/10. Home Medications Medication Instructions Recorded Confirmed Type No Known Home Medications 09/29/23 09/29/23 History Allergies Allergy/AdvReac Type Severity Reaction Status Date / Time milk Allergy Intermediate GI SYMPTOMS Verified 08/16/16 06:46 bee venom protein (honey bee) Allergy Unknown swelling Verified 08/16/16 06:46 Past Med/Surg History Medical History (Updated 09/29/23 @ 21:29 by Nader Cherry PA-C) Tobacco use PNA (pneumonia) Chest pain Dyslipidemia Surgical History (Updated 09/29/23 @ 03:55 by Nader Cherry PA-C) No significant past surgical history Family History (Updated 09/29/23 @ 09:59 by [facility]) Mother Diabetes Father Coronary heart disease Heart disease Hypertension Dyslipidemia Social History (Updated 09/29/23 @ 10:00 by [facility]) Smoking Status: Current every day smoker Tobacco Type: Cigarettes Age Started Using Tobacco: 14; packs per day: 1; Cigarettes Per Day: 10; Second Hand Exposure: No; Do You Dip or Chew Tobacco: No; Tobacco Cessation Education Requested by Patient: Yes Hx Alcohol Use: Yes Alcohol type: beer Hx Substance Use: No Preferred Language: Turkish Communication Ability: Effective 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 Beliefs That Will Affect Care: None Current Living Situation: Spouse Other Information That Helps Us Care for You: No Feels Safe at Home: Yes Safety Concerns: Feels Safe At This Time Review of Systems A total of 10 systems reviewed and were otherwise negative Physical Exam Vital Signs Vital Signs - 24 hr 09/28/23 23:44 09/29/23 00:57 09/29/23 01:02 Temperature 36.8 C 36.8 C Temperature Source Temporal Artery Scan Oral Pulse Rate 77 68 Pulse Rhythm Regular Pulse Strength Normal Respiratory Rate 18 18 Respiratory Effort / Characteristics Non-Labored Spontaneous Short of Breath Respiratory Depth Normal Normal Respiratory Pattern Regular Regular Blood Pressure 157/112 H Blood Pressure [Left Arm] 127/86 Blood Pressure Mean 127 Blood Pressure Mean [Left Arm] 99 Blood Pressure Position Sitting Blood Pressure Position [Left Arm] Lying Pulse Oximetry 98 Oxygen Delivery Method Room Air Room Air Sepsis Recent Fever Within 48 Hours No Sepsis New/Unexplained Change in Mental Status N/A Sepsis Action Taken by Nursing No Action Required 09/29/23 01:02 09/29/23 01:30 09/29/23 02:00 Temperature Temperature Source Pulse Rate 64 58 L 63 Pulse Rhythm Pulse Strength Respiratory Rate 20 20 Respiratory Effort / Characteristics Respiratory Depth Respiratory Pattern Blood Pressure 128/84 132/91 Blood Pressure [Left Arm] Blood Pressure Mean 98 104 Blood Pressure Mean [Left Arm] Blood Pressure Position Blood Pressure Position [Left Arm] Pulse Oximetry 95 95 Oxygen Delivery Method Sepsis Recent Fever Within 48 Hours Sepsis New/Unexplained Change in Mental Status Sepsis Action Taken by Nursing 09/29/23 02:30 09/29/23 03:00 09/29/23 03:29 Temperature Temperature Source Pulse Rate 59 L 68 Pulse Rhythm Pulse Strength Respiratory Rate 22 18 Respiratory Effort / Characteristics Respiratory Depth Respiratory Pattern Blood Pressure 137/90 125/88 133/87 Blood Pressure [Left Arm] Blood Pressure Mean 105 101 102 Blood Pressure Mean [Left Arm] Blood Pressure Position Blood Pressure Position [Left Arm] Pulse Oximetry 95 Oxygen Delivery Method Sepsis Recent Fever Within 48 Hours Sepsis New/Unexplained Change in Mental Status Sepsis Action Taken by Nursing 09/29/23 03:30 09/29/23 04:47 09/29/23 04:54 Temperature Temperature Source Pulse Rate 69 69 64 Pulse Rhythm Pulse Strength Respiratory Rate 18 18 Respiratory Effort / Characteristics Respiratory Depth Respiratory Pattern Blood Pressure 133/87 141/89 H Blood Pressure [Left Arm] Blood Pressure Mean 102 106 Blood Pressure Mean [Left Arm] Blood Pressure Position Blood Pressure Position [Left Arm] Pulse Oximetry 96 92 Oxygen Delivery Method Sepsis Recent Fever Within 48 Hours Sepsis New/Unexplained Change in Mental Status Sepsis Action Taken by Nursing 09/29/23 05:00 09/29/23 05:30 09/29/23 06:30 Temperature Temperature Source Pulse Rate 61 63 69 Pulse Rhythm Pulse Strength Respiratory Rate 22 20 18 Respiratory Effort / Characteristics Respiratory Depth Respiratory Pattern Blood Pressure 160/103 H 139/98 147/103 H Blood Pressure [Left Arm] Blood Pressure Mean 122 111 117 Blood Pressure Mean [Left Arm] Blood Pressure Position Blood Pressure Position [Left Arm] Pulse Oximetry 94 95 96 Oxygen Delivery Method Room Air Sepsis Recent Fever Within 48 Hours Sepsis New/Unexplained Change in Mental Status Sepsis Action Taken by Nursing VITALS: Vitals are noted on the nurse's note and reviewed by myself. Vital signs stable. GENERAL: Well-developed, well-nourished, white male, who is in no acute distress and resting comfortably. Patient is cooperative with the examination. HEAD: Normocephalic atraumatic. EARS: External ear normal. External auditory canals clear, tympanic membranes pearly hope without erythema or effusion bilaterally. EYES: Pupils equal round and reactive to light and accommodation. Conjunctivae without injection, sclerae without icterus. Extraocular movements intact. NOSE: Patent, turbinates without inflammation or discharge. MOUTH: Mucous membranes moist. Tonsils are not enlarged. Pharynx without erythema, blood, or exudate. Uvula midline. Airway patent. NECK: Supple without nuchal rigidity. No lymphadenopathy. No thyromegaly. Cervical spine is nontender. HEART: Regular rate and rhythm without murmurs gallops or rubs. LUNGS: Clear to auscultation bilaterally without wheezes, rales or rhonchi. No retractions or accessory muscle use. ABDOMEN: Positive normal bowel sounds x 4. Soft, nontender, without masses or organomegaly. No guarding or rebound tenderness. MUSCULOSKELETAL: No muscle atrophy, erythema, or edema noted. Full range of motion in all extremities. No tenderness to palpation. Normal gait. Strength 5/5 throughout. NEURO: Patient was alert and oriented to person place and time. CN II through XII grossly intact. No focal neurological deficits. Deep tendon reflexes 2+ throughout. SKIN: The skin was without rashes, erythema, edema, or bruising. Capillary refill less than 2 seconds. Course Administered Medications Heparin Sodium (Porcine) (Heparin Sod 5,000 Unit/0.5 Ml Vial) 5,000 units SQ Q12 ADONIS Stop: 10/29/23 20:59 Last Admin: 02/28/24 20:25 Dose: Not Given Documented By: WALESKA Ceftriaxone Sodium 2,000 mg/ (Dextrose) 50 mls @ 100 mls/hr IV Q24H [facility]; Protocol Stop: 10/06/23 08:29 Last Infusion: 09/29/23 10:38 Dose: Infused Documented By: Admin: 09/29/23 08:46 Dose: 100 mls/hr Documented By: PRIYA Doxycycline Hyclate 100 mg/ (Dextrose) 100 mls @ 50 mls/hr IV Q12H [facility] Stop: 10/06/23 08:29 Last Admin: 09/29/23 19:53 Dose: 50 mls/hr Documented By: Infusion: 09/29/23 11:21 Dose: Infused Documented By: Admin: 09/29/23 08:46 Dose: 50 mls/hr Documented By: PRIYA Nicotine (Nicotine 21 Mg/24 Hr Tdsy) 21 mg TD QAM [facility] Stop: 10/29/23 18:44 Last Admin: 09/29/23 19:24 Dose: 21 mg Documented By: WALESKA Discontinued Medications Aspirin (Aspirin 81 Mg Chew) 324 mg PO NOW STA Stop: 09/29/23 00:42 Last Admin: 09/29/23 00:56 Dose: 324 mg Documented By: FELIPE Sodium Chloride (Nss) 1,000 mls @ 999 mls/hr IV .Q1H1M ADONIS Stop: 09/29/23 01:45 Last Infusion: 09/29/23 01:58 Dose: Infused Documented By: Admin: 09/29/23 00:57 Dose: 999 mls/hr Documented By: FELIPE Nitroglycerin (Nitroglycerin 2% Ointment 30gm Tube) 1 inch EXT NOW ONE Stop: 09/29/23 00:42 Last Admin: 09/29/23 00:56 Dose: 1 inch Documented By: FELIPE Medical Decision Making Differential Diagnosis Differential diagnosis includes, but is not limited to: Myocardial infarction, dysrhythmia, pericarditis, pneumothorax, aortic aneurysm/dissection, DVT/PE, anxiety, GERD, PUD, electrolyte imbalance, thyroid disorder, pneumonia, bronchitis, pancreatitis, and others Laboratory Data 09/28/23 23:57 09/28/23 23:57 Lab Results 09/28/23 09/29/23 09/29/23 Range/Units 23:57 00:00 01:00 WBC 7.77 (4.8-10.8) K/ul RBC 5.49 (4.70-6.10) M/uL Hgb 15.0 (14.0-18.0) g/dl Hct 44.6 (42.0-52.0) % MCV 81.2 (80.0-100.0) fL MCH 27.3 (25.0-34.0) pg MCHC 33.6 (32.0-36.0) g/dL RDW Std Deviation 38.8 (36.4-46.3) fL RDW Coeff of Dario 13.2 (11.5-14.5) % Plt Count 238 (130-400) K/uL MPV 10.7 (9.4-12.4) fL Immature Gran % (Auto) 0.3 % Neut % (Auto) 60.6 % Lymph % (Auto) 28.8 % [place] % (Auto) 7.6 % Eos % (Auto) 2.1 % Baso % (Auto) 0.6 % Neut # (Auto) 4.71 (1.40-6.50) K/uL Lymph # (Auto) 2.24 (1.20-3.40) K/uL [place] # (Auto) 0.59 (0.11-0.59) K/uL Eos # (Auto) 0.16 (0.00-0.50) K/uL Baso # (Auto) 0.05 (0.00-0.20) K/uL Immature Gran # (Auto) 0.02 (0.01-0.20) K/uL PT 10.4 (9.0-12.0) Seconds INR 0.9 (0.9-1.1) APTT 33 H (21-31) Seconds PTT Ratio 1.2 D-Dimer < 190 (0-500) ug/L FEU Sodium 137 (136-145) mmol/L Potassium 3.7 (3.5-5.1) mmol/L Chloride 108 H (98-107) mmol/L Carbon Dioxide 22 (21-32) mmol/L Anion Gap 7 (3-11) BUN 18 (6-23) mg/dl Creatinine 0.92 (0.6-1.4) mg/dl Est Cr Clr Drug Dosing 155.2 ml/min Est GFR ( Amer) 121.9 ml/min Est GFR (Non-Af Amer) 105.1 ml/min BUN/Creatinine Ratio 19.6 (10-20) Glucose 97 (70-99(Fasting)) mg/dl Calcium 9.4 (8.6-10.3) mg/dl Total Bilirubin 0.5 (0.2-1.0) mg/dl AST 11 L (13-39) U/L ALT 17 (7-52) U/L Alkaline Phosphatase 63 (34-104) U/L Troponin I High Sens < 2.3 (0-20) pg/ml Total Protein 6.9 (6.0-8.3) gm/dl Albumin 4.3 (3.4-5.0) gm/dl Globulin 2.6 (2.5-4.0) gm/dl Albumin/Globulin Ratio 1.7 (0.9-2) Procalcitonin < 0.02 (0-0.5) ng/ml Adenovirus (PCR) Not Detected (NotDetected) B. pertussis DNA (PCR) Not Detected (NotDetected) B.parapertussis DNA PCR Not Detected (NotDetected) C. pneumoniae DNA (PCR) Not Detected (NotDetected) Coronavirus OC43 (PCR) Not Detected (NotDetected) Coronavirus HKU1 (PCR) Not Detected (NotDetected) Coronavirus 229E (PCR) Not Detected (NotDetected) SARS-CoV-2 (PCR) Not Detected (NotDetected) Coronavirus NL63 (PCR) Not Detected (NotDetected) Human Metapneumovir PCR Not Detected (NotDetected) Influenza Type A (PCR) Not Detected (NotDetected) Influenza Type B (PCR) Not Detected (NotDetected) M. pneumoniae (PCR) Not Detected (NotDetected) Parainfluenza 1 (PCR) Not Detected (NotDetected) Parainfluenza 2 (PCR) Not Detected (NotDetected) Parainfluenza 3 (PCR) Not Detected (NotDetected) Parainfluenza 4 (PCR) Not Detected (NotDetected) RSV (PCR) Not Detected (NotDetected) Entero/Rhino (PCR) Not Detected (NotDetected) 09/29/23 Range/Units 02:11 WBC (4.8-10.8) K/ul RBC (4.70-6.10) M/uL Hgb (14.0-18.0) g/dl Hct (42.0-52.0) % MCV (80.0-100.0) fL MCH (25.0-34.0) pg MCHC (32.0-36.0) g/dL RDW Std Deviation (36.4-46.3) fL RDW Coeff of Dario (11.5-14.5) % Plt Count (130-400) K/uL MPV (9.4-12.4) fL Immature Gran % (Auto) % Neut % (Auto) % Lymph % (Auto) % [place] % (Auto) % Eos % (Auto) % Baso % (Auto) % Neut # (Auto) (1.40-6.50) K/uL Lymph # (Auto) (1.20-3.40) K/uL [place] # (Auto) (0.11-0.59) K/uL Eos # (Auto) (0.00-0.50) K/uL Baso # (Auto) (0.00-0.20) K/uL Immature Gran # (Auto) (0.01-0.20) K/uL PT (9.0-12.0) Seconds INR (0.9-1.1) APTT (21-31) Seconds PTT Ratio D-Dimer (0-500) ug/L FEU Sodium (136-145) mmol/L Potassium (3.5-5.1) mmol/L Chloride (98-107) mmol/L Carbon Dioxide (21-32) mmol/L Anion Gap (3-11) BUN (6-23) mg/dl Creatinine (0.6-1.4) mg/dl Est Cr Clr Drug Dosing ml/min Est GFR ( Amer) ml/min Est GFR (Non-Af Amer) ml/min BUN/Creatinine Ratio (10-20) Glucose (70-99(Fasting)) mg/dl Calcium (8.6-10.3) mg/dl Total Bilirubin (0.2-1.0) mg/dl AST (13-39) U/L ALT (7-52) U/L Alkaline Phosphatase (34-104) U/L Troponin I High Sens 2.8 (0-20) pg/ml Total Protein (6.0-8.3) gm/dl Albumin (3.4-5.0) gm/dl Globulin (2.5-4.0) gm/dl Albumin/Globulin Ratio (0.9-2) Procalcitonin (0-0.5) ng/ml Adenovirus (PCR) (NotDetected) B. pertussis DNA (PCR) (NotDetected) B.parapertussis DNA PCR (NotDetected) C. pneumoniae DNA (PCR) (NotDetected) Coronavirus OC43 (PCR) (NotDetected) Coronavirus HKU1 (PCR) (NotDetected) Coronavirus 229E (PCR) (NotDetected) SARS-CoV-2 (PCR) (NotDetected) Coronavirus NL63 (PCR) (NotDetected) Human Metapneumovir PCR (NotDetected) Influenza Type A (PCR) (NotDetected) Influenza Type B (PCR) (NotDetected) M. pneumoniae (PCR) (NotDetected) Parainfluenza 1 (PCR) (NotDetected) Parainfluenza 2 (PCR) (NotDetected) Parainfluenza 3 (PCR) (NotDetected) Parainfluenza 4 (PCR) (NotDetected) RSV (PCR) (NotDetected) Entero/Rhino (PCR) (NotDetected) ECG Data Attestation: I personally reviewed and interpreted this ECG as follows: Indication: + chest pain Additional Comments: Normal sinus rhythm @[address] and T wave abnormality When compared with ECG of 16-AUG-2016 05:23, Vent. rate has decreased BY 39 BPM T wave inversion now evident in Anterior leads MDM Narrative Physical exam and history were performed. Nursing notes, EMR, and Medication List were personally reviewed. No social concerns were identified as barriers to patients care. Patient appears to have chest pain symptoms bring him to the ER. IV access was established and labs were obtained. He was hydrated with normal saline. Patient was given aspirin and Nitropaste. An order was placed for continuous cardiac monitoring. The monitor shows a rate of 78 with normal sinus rhythm. Patient's blood work is as above and was reviewed. He does not have a significantly elevated white blood cell count, gross anemia, bandemia, or significant electrolyte imbalance. D-dimer x 1 and troponin x 2 are negative. Patient heart score is at least 3, if not possibly higher. He does have significant family history. His EKG does show changes in the anterior leads from his old EKG 7 years ago. I did discuss the case with case management, and it appears the patient has an outpatient appointment to establish with the [facility] provider in [place]. He does not actively have a PCP that he spends time with. I did reach out to [facility] cardiology, Dr. Shipman, who is on-call today. It does appear the patient will need a stress test, and Dr. Shipman believes that he will be available around noon to perform this. I do feel this is in the best interest of the patient, and he is comfortable with this. The patient is currently pain-free. Repeat EKG was performed and is essentially identical to the one performed upon patient's initial arrival. Case was discussed with the [facility] hospitalist team, who agreed to evaluate the patient here in the ER. Please see their dictation for further patient course, plan, and disposition. The chart was completed utilizing [employer] Speech Voice Recognition Software. Grammatical errors, random word insertions, pronoun errors, and incomplete sentences are an occasional consequence of this system due to software limitations, ambient noise, and hardware issues. Any formal questions or concerns about the content, text, or information contained within the body of this dictation should be directly addressed to the provider for clarification. . Impression & Plan Atypical chest pain, Acute electrocardiogram changes, Family history of sudden cardiac Discharge Plan Visit Data Chief Complaint: Chest Pain Stated Complaint: CHEST PAIN,PAIN IN JAW DOWN THROUGH NECK ED Provider: [facility] ED Midlevel Provider: Nader Cherry Discharge Problem: Atypical chest pain, Acute electrocardiogram changes, Family history of sudden cardiac Patient Disposition: Admitted As Inpatient Discharge Instructions Interventions: ED Discharge Assessment Last Done: 09/29/23 12:48
[2023-09-29] MEDS ORDERED: ACETAMINOPHEN 325 MG TAB PO PRN (07:41)
[2023-09-29] MEDS ORDERED: NITROGLYCERIN SL 0.4 MG/TAB TAB SL PRN (07:41)
--- NOTE | 2023-09-29 07:53 | XRay Report ---
SINGLE VIEW CHEST CLINICAL HISTORY: Atypical chest pain. FINDINGS: A PA chest radiograph is compared to study dated 08/16/2016. The cardiomediastinal silhouett e is top normal for projection. There are mild airspace opacities at the left lung base. No pleural e ffusion or pneumothorax is seen. The bony thorax is grossly intact. IMPRESSION: There are mild airspace opacities at the left lung base. Correlate clinically for evidenc e of pneumonia. Radiographic follow-up to resolution is recommended. ACT 112: Negative or not required by law. Electronically signed by: Emmanuel Clements M.D. 09/29/2023 7:52 AM
[2023-09-29] MEDS: cefTRIAXone SODIUM 2,000 MG in DEXTROSE 5 % MINI-B 50 ML IV SCH (08:46)
[2023-09-29] MEDS: DOXYCYCLINE HYCLATE 100 MG in DEXTROSE 5% MINI-B 100 ML IV SCH (08:46)
--- NOTE | 2023-09-29 08:53 | History & Physical Report ---
Date of Service September 29, 2023 Assessment & Plan (1) Chest pain: (2) PNA (pneumonia): (3) Dyslipidemia: (4) Tobacco use: (5) GERD (gastroesophageal reflux disease): Plan 38 y/o male who presented to the ED with c/o chest pain that started yesterday, 09/28 in the morning when he woke up. He describes it as anterior crushing chest pain with radiation into his bilateral jaw and bilateral shoulder blades; worsening with deep breathing. 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 He went to bed last evening and started to feel aching in his anterior chest againprompting them to drive to the emergency room. No leukocytosis, D-dimer negative, troponin negative x 2, bio fire negative, otherwise electrolytes unremarkable. Normotensive and on room air. Smoker: 1/2 to 1 pack/day x 20-year history. Has intentionally had a 20 pound weight loss since June 2023 with diet modifications based on his most recent lipid panel in June. Lipid panel significant 06/24; triglyceride 858, HDL 32, LDL 117. He is not on any antihypertensives or lipid-lowering agents. He has taken fenofibrate in the past. CXR opacities LLL base suggestive of possible pneumonia. ECG normal sinus rhythm with nonspecific T wave inversion anterior leads. Patient received Nitropaste 1 "and loaded with ASA 324 mg. Patient will be admitted for and evaluated for chest pain. Will trend troponin level, start on doxycycline plus Rocephin for coverage for pneumonia, which may have provoked his chest pain; adjust ABX based on sputum and blood cultures. Repeat lipid panel. Keep n.p.o. for now pending cards consult. Will involve cardiology given chest pain, increased risk factors including obesity, smoking, lipid panel results and increased familial cardiac risk (father at 64 s/p AMI). Admit to PCU pending possible cardiac intervention. #Chest pain: Acute Admit to PCU Relieved with Nitropaste 1" Received loading dose aspirin in ED; continue with baby aspirin in a.m. ECG normal sinus rhythm with nonspecific T wave inversion anterior leads. Troponin negative x 2; continue to trend x 1 Check TSH D-dimer negative Familial history; father of AMI age 62 Lipid panel 06/24; TG 858, HDL 32, LDL's 117; check fasting lipid panel now; has not eaten or drank since 09/28 1699 NPO for now pending Cards eval ECHO ordered He is not on any antihypertensives or lipid-lowering agents. Cardiology consultation placed #Pneumonia: Acute Chest x-ray: opacities left lower lung base suggestive of possible pneumonia No leukocytosis, abx already started no blood cultures drawn; does not appear toxic Bio fire negative Sputum culture ordered Started on Doxy plus Rocephin in ED; continue for now and adjust based on culture results Check procalcitonin #Dyslipidemia: Chronic Lipid panel 06/24; TG 858, HDL 32, LDL's 117; check fasting lipid panel now; has not eaten or drank since 09/28 1699 Was taking Fenofibrate; but has not over past 6 months or so INtential 20# weight loss since Jun 2023 with additional diet mods, including alcohol cessation #Tobacco Use: Chronic 1/2-1 ppd smoker x 20 years Smoking cessation required Hold on Nicotine patch for now given symptoms #GERD: Chronic no current medications Disposition: PCP: Unassigned Code Status: Full Code VTE Prophylaxis: Heparin SQ I spent a total of 87 minutes coordinating, documenting, and providing care for this patient excluding time spent in the performance of separately billed services. All of the aforementioned completed while collaborating with the assigned attending physician for a full treatment plan. Please see their addendum for further details. History of Present Illness Chief Complaint: Chest pain Primary Care Provider: NO PCP Mr. Alaniz is a 38-year-old male who presented to the ED with complaints of chest pain that started yesterday, 09/21 7 in the morning when he woke up. He describes it as anterior crushing chest pain with radiation into his bilateral jaw and bilateral shoulder blades; worsening with deep breathing. 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 He went to bed last evening and started to feel aching in his anterior chest prompting them to drive to the emergency room. In the ED no leukocytosis, D-dimer negative, troponin negative x 2, bio fire negative, otherwise electrolytes unremarkable. Normotensive and on room air. Reports that his 10-year-old daughter currently has influenza and his son is sick as well without formal testing. Currently smoking 1/2 to 1 pack/day x 20-year history. Has intentionally had a 20 pound weight loss since June 2023 with diet modifications based on his most recent lipid panel in June. Lipid panel significant 06/24; triglyceride 858, HDL 32, LDL 117. He is not on any antihypertensives or lipid- lowering agents. He has taken fenofibrate in the past but has not taken it consistently over the past 6 months. Significant family history of AMI; father at 64 years old. Patient mother has DM 2. Chest x-ray reveals opacities left lower lung base suggestive of possible pneumonia. ECG normal sinus rhythm with nonspecific T wave inversion anterior leads. In the ED patient received Nitropaste 1 "and loaded with ASA 324 mg. Patient denies headache, dizziness, visual or auditory changes, current chest pain, shortness of breath, orthopnea, N/V/D, abdominal pain or tenderness, swelling, urinary or bowel changes, recent falls or trauma. In the room, patient sitting upright in his hospital bed in no apparent distress and does not appear toxic. Normotensive without tachycardia and on room air. Currently rating chest pain 1 out of 10 with deep inspiration. Patient will be admitted for and evaluated for chest pain. Will trend troponin level, start on doxycycline plus Rocephin for coverage for pneumonia, which may have provoked his chest pain; adjust ABX based on sputum and blood cultures. Repeat lipid panel. Keep n.p.o. for now pending cards consult. Will involve cardiology given chest pain, increased risk factors including obesity, smoking, lipid panel results and increased familial cardiac risk. Admit to PCU pending possible cardiac intervention. Allergies Allergy/AdvReac Type Severity Reaction Status Date / Time milk Allergy Intermediate GI SYMPTOMS Verified 08/16/16 06:46 bee venom protein (honey bee) Allergy Unknown swelling Verified 08/16/16 06:46 Home Medications Medication Instructions Recorded Confirmed Type No Known Home Medications 09/29/23 09/29/23 History Past Med/Surg History Medical History (Updated 09/29/23 @ 15:57 by Vasquez Shipman DO) Tobacco use PNA (pneumonia) Chest pain Dyslipidemia Surgical History (Updated 09/29/23 @ 03:55 by Nader Cherry PA-C) No significant past surgical history Family History (Updated 09/29/23 @ 09:59 by [facility]) Mother Diabetes Father Coronary heart disease Heart disease Hypertension Dyslipidemia Social History (Updated 09/29/23 @ 10:00 by [facility]) Smoking Status: Current every day smoker Tobacco Type: Cigarettes Age Started Using Tobacco: 14; packs per day: 1; Cigarettes Per Day: 10; Second Hand Exposure: No; Do You Dip or Chew Tobacco: No; Tobacco Cessation Education Requested by Patient: Yes Hx Alcohol Use: Yes Alcohol type: beer Hx Substance Use: No Preferred Language: Malagasy Communication Ability: Effective Social Work Job Titles Required: No Beliefs That Will Affect Care: None Current Living Situation: Spouse Other Information That Helps Us Care for You: No Feels Safe at Home: Yes Safety Concerns: Feels Safe At This Time Review of Systems Review of Systems: Neuro: (-) Falls, trauma, slurred speech HEENT: (-) [place], dizziness, dysphagia, visual or auditory changes CV: (+) anterior CP without current radiation, (-) pleuritic chest pain, (-) palpitations, swelling Resp: (+) SOB with exercise GI: (-) appetite changes, N/V/D, bowel changes : (-) urinary changes Skin: (-) rashes Psych: (-) anxiety, depression Physical Exam Physical Exam: Neuro: AAOx4, PERRLA, no aphagia, memory changes, CNII-XII grossly intact HEENT: head normocephalic, moist mucus membranes CV: S1/S2, (-) M/G/R, (-) edema, cap refill < 3 seconds Resp: On RA; Lung sounds decreased LLL base GI: Abdomen S/NT/ND, Ax4 bowel sounds, (-) CVA tenderness Musculoskeletal: 5/5 B/L UE strength, 5/5 B/L LE strength. No gait disturbance Skin: (-) rashes , (-) erythema. Psych: euthymic mood Results & Data Results & Data Vital Signs (Past 12 Hours) Vital Signs Temp Pulse Resp BP BP Pulse Ox O2 Del Method 09/29/23 06:30 69 18 147/103 H 96 Room Air 09/29/23 05:30 63 20 139/98 95 09/29/23 05:00 61 22 160/103 H 94 09/29/23 04:54 64 09/29/23 04:47 69 18 141/89 H 92 09/29/23 03:30 69 18 133/87 96 09/29/23 03:29 68 18 133/87 09/29/23 03:00 125/88 09/29/23 02:30 59 L 22 137/90 95 09/29/23 02:00 63 20 132/91 95 09/29/23 01:30 58 L 20 128/84 95 09/29/23 01:02 64 09/29/23 01:02 36.8 C 18 127/86 Room Air 09/29/23 00:57 68 09/28/23 23:44 36.8 C 77 18 157/112 H 98 Room Air Laboratory Results Short CBC 09/28/23 Range/Units 23:57 WBC 7.77 (4.8-10.8) K/ul Hgb 15.0 (14.0-18.0) g/dl Hct 44.6 (42.0-52.0) % Plt Count 238 (130-400) K/uL BMP 09/28/23 23:57 Sodium 137 Potassium 3.7 Chloride 108 H Carbon Dioxide 22 BUN 18 Creatinine 0.92 Glucose 97 Calcium 9.4 Liver Function 09/28/23 Range/Units 23:57 Total Bilirubin 0.5 (0.2-1.0) mg/dl AST 11 L (13-39) U/L ALT 17 (7-52) U/L Alkaline Phosphatase 63 (34-104) U/L Albumin 4.3 (3.4-5.0) gm/dl Diagnostic Findings Chest X-Ray 09/28/23 23:47 SINGLE VIEW CHEST CLINICAL HISTORY: Atypical chest pain. FINDINGS: A PA chest radiograph is compared to study dated 08/16/2016. The cardiomediastinal silhouette is top normal for projection. There are mild airspace opacities at the left lung base. No pleural effusion or pneumothorax is seen. The bony thorax is grossly intact. IMPRESSION: There are mild airspace opacities at the left lung base. Correlate clinically for evidence of pneumonia. Radiographic follow-up to resolution is recommended. ACT 112: Negative or not required by law. Electronically signed by: Emmanuel Clements M.D. 09/29/2023 7:52 AM Code Status & VTE Plan Code Status Full code in the event of cardiac respiratory arrest Supervising Physician Co-Signing Physician Notes 38-year-old male with PMH of smoking tobacco, noncompliance with lipid medication, HLD, GERD presented to the ED with 1 day history of chest pain, intermittent, radiating to neck and jaw. Also noted to have left lower lobe pneumonia on x-ray. Reports sick contact at home. Cardiology consulted, plan for stress echo --> echo negative for inducible ischemia. Lipid panel in a.m., continue antibiotics for pneumonia, CXR to document resolution of pneumonia upon discharge in 4 to 6 weeks. On exam: Room air, obese, NAD, heart/lung/abdomen examination fairly WNL. I have seen and examined the patient and have discussed the case with the provider above. I agree with the assessment and plan as stated.
[2023-09-29 09:21] LABS: Troponin I High Sensitivity < 2.3 pg/ml (0-20)
[2023-09-29 10:28] LABS: Thyroid Stimulating Hormone 2.636 uIu/ml (0.300-4.500)
--- NOTE | 2023-09-29 10:29 | Electrocardiogram Report ---
Test Reason : Blood Pressure : / mmHG Vent. Rate : 068 BPM Atrial Rate : 068 BPM P-R Int : 166 ms QRS Dur : 084 ms QT Int : 404 ms P-R-T Axes : 049 015 -23 degrees QTc Int : 429 ms Normal sinus rhythm Nonspecific ST and T wave abnormality Abnormal ECG When compared with ECG of 16-AUG-2016 05:23, Vent. rate has decreased BY 39 BPM T wave inversion now evident in Anterior leads Confirmed by Braxton Snowden ([id number]) on 09/29/2023 10:29:05 AM Referred By: REFERRED SELF Confirmed By:Braxton Snowden
--- NOTE | 2023-09-29 10:34 | Electrocardiogram Report ---
Test Reason : Blood Pressure : / mmHG Vent. Rate : 065 BPM Atrial Rate : 065 BPM P-R Int : 146 ms QRS Dur : 088 ms QT Int : 426 ms P-R-T Axes : 051 020 -06 degrees QTc Int : 443 ms Normal sinus rhythm Nonspecific T wave abnormality Abnormal ECG When compared with ECG of 28-SEP-2023 23:50, (unconfirmed) No significant change was found Confirmed by Braxton Snowden ([id number]) on 09/29/2023 10:34:09 AM Referred By: REFERRED SELF Confirmed By:Braxton Snowden
[2023-09-29 11:07] LABS: Cholesterol 200 mg/dl (0-200); HDL Cholesterol 32 mg/dl; Triglycerides 245 mg/dl (0-150)
[2023-09-29 11:09] LABS: Chol HDL Ratio 6.3 (0-5); LDL Cholesterol Calculated 119 mg/dl; VLDL Cholesterol 49 mg/dl (0-30)
--- OUTSIDE RECORDS SUMMARY | 2023-09-29 13:55 | External Medical Summary | Summary of Care ---
Author Name Unknown Organization [facility] Address [address] [facility] [place] [address] Phone [phone] Care Team Providers Care Sales Expert Name Role Phone Unavailable Primary Care Provider Unavailabl e Reason for Visit * Reason Onset Date Comments Medication Refill 07/28/2023 Encounter Details Date Type Department Care Team (Late st Contact Info) Description 07/28/2023 Refill Family Medicine [address] [place] [phone] Rupal Lutz PA-C [address] [place] [address] [place] [phone] High triglycerides Allergies No known active allergiesdocumented as of this encounter (statuses as of 07/29/2023) Medications Medication Sig Dispensed Refills Start Date End Date Status Cetirizine HCl 10 MG Oral Tablet (ZyrTEC Allergy) Take 1 Tablet by mouth in the morning. 0 06/05/2020 Active Fenofibrate 145 MG Oral Tablet (Tricor)Indications: High triglycerides Take 1 Tablet by mouth in the morning. 90 Tablet 3 07/29/2023 Active Fenofibrate 145 MG Oral Tablet (Tricor)Indications: High triglycerides Take 1 Tablet by mouth in the morning. 30 Tablet 5 07/01/2023 07/28/2023 Discontinued (Refill) documented as of this encounter (statuses as of 07/29/2023) Active Problems Problem Noted Date Diagnosed Date Hypertriglyceridemia 06/05/2020 Lactose intolerance in adult 08/24/2016 Tobacco use disorder 06/24/2005 Other allergic rhinitis 11/20/2004 Overview: ICD-10 update of inactive term documented as of this encounter (statuses as of 07/29/2023) Resolved Problems Problem Noted Date Diagnosed Date Resolved Date Costochondritis 05/05/2013 08/24/2016 CHR ALLRG CONJUNCTIV NEC 06/24/2005 NONE 07/17/2004 06/24/2005 DISACCHARIDASE DEF-MALAB 12/29/2002 Spasm of muscle 12/29/2002 08/24/2016 documented as of this encounter (statuses as of 07/29/2023) Immunizations Name Administration Dates Next Due Pneumococcal Polysaccharide PPV23 (Pneumovax) Seasonal Influenza, Split, IIV3, With Preserve, Inj 05/04/2013 TDAP (age 11 and older)(Adacel) 03/03/2011 documented as of this encounter Social History Tobacco Use Types Packs/Day Years Used Date Smoking Tobacco: Every Day Cigarettes 0.5 1 Smokeless Tobacco: Never Quit: 08/15/2016 Comments:Father smoked in [place] during his childhood. Alcohol Use Standard Drinks/Week Comments Yes 0 (1 standard drink = 0.6 oz pur e alcohol) rarely PHQ-2 Answer Date Recorded PHQ-2 Score 0 05/22/2019 Hunger Vital Sign Answer Date Recorded Worried About Running Out of Food in the Last Ye ar Never true 06/05/2020 Ran Out of Food in the Last Year Never true 06/05/2020 Sex and Gender Information Value Date Recorded Sex Assigned at Male 07/05/2023 2:10 PM EST Gender Identity Male 07/05/2023 2:10 PM EST Sexual Orientation Straight 07/05/2023 2: 10 PM EST Job Start Date Occupation Industry Not on file Not on file Not on file documented as of this encounter Miscellaneous Notes * Telephone Encounter - Almas Baum MD - 07/29/2023 1:58 PM ESTSigned Prescriptions: Disp Refills Fenofibrate 145 MG Oral Tablet (Tricor) 90 Tab*3 Sig: Take 1 Tablet by mouth in the morning. Authorizing Provider: ALMAS BAUM * Telephone Encounter - Kady Almeida RN - 07/29/2023 1:55 PM ESTPending Prescriptions: Disp Refills Fenofibrate 145 MG Oral Tablet (Tricor) 90 Tab*3 Sig: Take 1 Tablet by mouth in the morning. * Telephone Encounter - Delores Joe OSA - 07/28/2023 10:26 AM EST Did you pend patient's preferred pharmacy and medication before forwarding?yes Pharmacy: [id number] [id number] [facility] Pending Prescriptions: Disp Refills Fenofibrate 145 MG Oral Tablet (Tricor) 30 Tab*5 Sig: Take 1 Tablet by mouth in the morning. Last Visit: 07/01/2023 (in office), Visit date not found (telemedicine) Next Visit: 01/05/2024 If no future appointments scheduled, and last appointment is greater than a year ago, please schedule patient for a follow-up appointment Last date the medication was ordered: 07.01.23 Is this request for a controlled substance?No Urine Drug Screen:No results found for this or any previous visit. Patient Phone Numbers Labs: Lab Results Component Value Date/Time CREAT 1.0 07/01/2023 03:17 PM CREAT 1.2 06/08/2020 08:35 AM POTASSIUM 4.2 07/01/2023 03:17 PM POTASSIUM 4.7 06/08/2020 08:35 AM TSH 1.97 05/26/2013 08:40 AM LDLCALC 151 (H) 06/08/2020 08:35 AM LDLDIRECT 117 07/01/2023 03:17 PM LDLDIRECT NOT APPLICABLE 06/08/2020 08:35 AM ALT 44 07/01/2023 03:17 PM ALT 30 06/08/2020 08:35 AM documented in this encounter Plan of Treatment Upcoming Encounters Date Type Department Care Team (Late st Contact Info) Description 01/05/2024 3:00 PM EDT Office Visit Family Medicine [address] [place] [phone] Jeffy Moreno MD [address] [place] [address] [place] [phone] 01/26/2024 8:00 AM EDT Office Visit Dermatology [address] [place] [phone] Kelle Lott PA-C [address] [place] [address] [place] [phone] Health Maintenance Due Date Last Done Comments COVID-19 Vaccine (#1) 1985 HIV Screening 02/09/2000 Hepatitis C Screening 2003 Depression Screening 05/22/2020 05/22/2019 DTaP,Tdap,and Td Vaccines (3 - Td or Tdap) 03/03/2021 03/03/2011, 03/02/1998 Pneumococcal Vaccine: Pediatrics (0 to 5 Years) and At-Risk Patients (6 to 64 Years) (2 - PCV) 06/05/2021 06/05/2020 Influenza Vaccine (FLU shot) (#1) 2023 05/04/2013, 06/24/2005 Diabetes Screening 07/01/2026 07/01/2023, 1 08/08/2019, 03/29/2013, Additional history exists Hepatitis B Completed 02/01/2001, 11/01, 09/03/1998 GARDASIL-HPV IMMUNIZATION SERIES Aged Out No longer eligible based on patient's age to complete this topic MENINGOCOCCAL (MENACTRA/MENVEO) Aged Out No longer eligible based on patient's age to complete this topic documented as of this encounter Medical Devices Not on filedocumented as of this encounter Visit Diagnoses Diagnosis High triglycerides Pure hyperglyceridemia documented in this encounter
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
--- OUTSIDE RECORDS SUMMARY | 2023-09-29 13:55 | External Medical Summary | Summary of Care ---
Author Name Unknown Organization [facility] [address] [facility] [address] Phone [phone] Care Team Providers Care Marketing Compliance Manager Name Role Phone Unavailable Primary Care Provider Unavailabl e Encounter Details Date Type Department Care Team (Late st Contact Info) Description 08/24/2023 Orders Only PATIENT PORTAL DO NOT DELETE THIS DEPT USED BY [place] [id number] Allergies No known active allergiesdocumented as of this encounter (statuses as of 08/24/2023) Medications Medication Sig Dispensed Refills Start Date End Date Status Cetirizine HCl 10 MG Oral Tablet (ZyrTEC Allergy) Take 1 Tablet by mouth in the morning. 0 06/05/2020 Active Fenofibrate 145 MG Oral Tablet (Tricor)Indications:Hig h triglycerides Take 1 Tablet by mouth in the morning. 90 Tablet 3 07/29/2023 Active documented as of this encounter (statuses as of 08/24/2023) Active Problems Problem Noted Date Diagnosed Date Family hx of melanoma 08/23/2023 Hypertriglyceridemia 06/05/2020 Lactose intolerance in adult 08/24/2016 Tobacco use disorder 06/24/2005 Other allergic rhinitis 11/20/2004 Overview: ICD-10 update of inactive term documented as of this encounter (statuses as of 08/24/2023) Resolved Problems Problem Noted Date Diagnosed Date Resolved Date Costochondritis 05/05/2013 08/24/2016 CHR ALLRG CONJUNCTIV NEC 06/24/2005 NONE 07/17/2004 06/24/2005 DISACCHARIDASE DEF-MALAB 12/29/2002 01/ Spasm of muscle 12/29/2002 08/24/2016 documented as of this encounter (statuses as of 08/24/2023) Immunizations Name Administration Dates Next Due Pneumococcal [...] on file documented as of this encounter Plan of Treatment Upcoming Encounters Date Type Department Care Team (Late st Contact Info) Description 01/05/2024 3:00 PM EDT Office Visit Family Medicine [address] [place] [phone] Jeffy Moreno MD [address] [place] [address] [place] [phone] Health Maintenance Due Date Last Done Comments [...]
--- OUTSIDE RECORDS SUMMARY | 2023-09-29 13:55 | External Medical Summary | Summary of Care ---
Author Name Unknown Organization [facility] Address [address] [place] [address] Phone [phone] Care Team Providers Care Telemetry Rn Name Role Phone Unavailable Primary Care Provider Unavailabl e Reason for Referral * Evaluate & Treat - Unlimited Visits (Within 30 days (routine)) - Pending Review Specialty Diagnoses / Procedures Referred By Cely montiel Referred To Contact Dermatology Diagnoses EIC (epidermal inclusion cyst) Kelle Lott PA-C [address] [place] [address] [place] [address] Referral ID Status Reason Start Date Expiration Date Visits Requested Visits Authorized [id number] Pending Review Specialty Services Required 08/23/2023 999 [...] PATIENT Referred for skin le kathy/cyst left pentecostal area x 1 year, getting larger (declined full skin exam) * Evaluate & Treat - Unlimited Visits (Within 30 days (routine)) - Pending Review Specialty Diagnoses / Procedures Referred By Contkatlin montiel Referred To Contact Dermatology Diagnoses Cyst of skin Candido Monaco PA-C [address] [place] [address] [place] [address] Referral ID Status Reason Start Date Expiration Date Visits Requested Visits Authorized [id number] Pending Review Specialty Services Required 3 [phone] Encounter Details Date Type Department Care Team (Late st Contact Info) Description 08/23/2023 8:20 AM EST Office Visit Dermatology [address] [place] [phone] Kelle Lott PA-C [address] [place] [address] [place] [phone] Family hx of melanoma*; Multiple nevi; EIC [...] 08/24/2023) Immunizations Name Administration Dates Next Due Hepatitis B, 0-19 yrs 02/01/2001,11/21/1998,09/1998 Pneumococcal Polysaccharide PPV23 (Pneumovax) 06/05/2020 Seasonal Influenza, Split, I IV3, With Preserve, Inj 05/04/2013,06/24/2005 TB Jayleen Test 09/03/1998 TD - Tetanus/Diptheria (ADULT) 03/02/1998 TDAP (age 11 and older)(Adacel) 03/03/2011 documented [...] zinc. Product examples; Think sport, Think baby, [place], [employer] botanicals, [employer], [place] baby. "Baby" products can be used for all ages. documented in this encounter Progress Notes * Niles Ochoa MD - 08/24/2023 10:16 AM EST I have seen and examined the patient via teledermatology review of chart note and photos with Kelle Lott PA-C. I have reviewed and agree with the assessment and plan. * Kelle Lott PA-C - 08/23/2023 8:17 AM EST SUBJECTIVE: HPI: Balbir Alaniz is a 38 year old male seen at the request of Candido Monaco PA-C for evaluation and treatment of lesion. Pt. declined full skin exam. Lesion on L pentecostal, present for about 1 year, enlarging. Squeezed [...] NONE Reviewed, same day as visit, 0 [facility] Dermatology lab work(s)/pathology report(s) as well [...] brown macules and soft papules. 3. L pentecostal/back-2 sharply defined, variegated brown, waxy flat papules with velvety to finely verrucous surfaces. ASSESS MENT/PLAN: 1. Epidermoid inclusion cyst on L lateral canthus-Pt desires excision of lesion, is aware he will be called to schedule the Mohs OPS in [facility]. 2. Nevi on scalp/back-no tx needed, pt [...] also reviewed. 3. Seborrheic/Benign Keratosis(-es) on L pentecostal/back-no tx needed, pt given reassurance and writteneducation [...] Kelle Lott PA-C 08/23/2023 8:17 AM Ref: CANDIDO MONACO[[id number]] [address] [place] [address] [place] [phone] (office) [phone] (fax) PCP: None documented in this encounter Nursing Notes * Sarah Bañuelos LPN - 08/23/2023 8:16 AM EST Patient identified by full name and date of . Chief Complaint Patient presents with NEW PATIENT Referred for skin lesion/cyst left pentecostal area x 1 year, getting larger (declined full skin exam) documented in this encounter Plan of Treatment Upcoming Encounters Date Type Department Care Team (Late st Contact Info) Description 01/05/2024 3:00 PM EDT Office Visit Family Medicine [address] [place] [phone] Jeffy Moreno MD [address] [place] [address] [place] [address] Scheduled Referrals Name Type Priority Associated Diagnoses [...]
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
--- OUTSIDE RECORDS SUMMARY | 2023-09-29 13:55 | External Medical Summary | Summary of Care ---
Author Name Unknown Organization [facility] Address [address] [facility] [place] [address] Phone [phone] Care Team Providers Care Linen Room Custodian Name Role Phone Unavailable Primary Care Provider Unavailabl e Reason for Visit * Reason Onset Date Comments Appointment 08/23/2023 Derm Encounter Details Date Type Department Care Team (Late st Contact Info) Description 08/23/2023 Telephone Dermatology [address] [place] [phone] Kelle Lott PA-C [address] [place] [address] [place] [phone] Appointment (Derm) Allergies No known active allergiesdocumented as of this encounter (statuses as of 08/31/2023) Medications Medication Sig Dispensed Refills Start Date End Date Status Cetirizine HCl 10 MG Oral Tablet (ZyrTEC Allergy) Take 1 Tablet by mouth in the morning. 0 06/05/2020 Active Fenofibrate 145 MG Oral Tablet (Tricor)Indications:Hig h triglycerides Take 1 Tablet by mouth in the morning. 90 Tablet 3 07/29/2023 Active documented as of this encounter (statuses as of 08/31/2023) Active Problems Problem Noted Date Diagnosed Date Family hx of melanoma 08/23/2023 Hypertriglyceridemia 06/05/2020 Lactose intolerance in adult 08/24/2016 Tobacco use disorder 06/24/2005 Other allergic rhinitis 11/20/2004 Overview: ICD-10 update of inactive term documented as of this encounter (statuses as of 08/31/2023) Resolved Problems Problem Noted Date Diagnosed Date Resolved Date Costochondritis 05/05/2013 08/24/2016 CHR ALLRG CONJUNCTIV NEC 06/24/2005 NONE 07/17/2004 06/24/2005 DISACCHARIDASE DEF-MALAB 12/29/2002 Spasm of muscle 12/29/2002 08/24/2016 documented as of this encounter (statuses as of 08/31/2023) Immunizations Name Administration Dates Next Due Pneumococcal [...] encounter Miscellaneous Notes * Telephone Encounter - Phani Arriaza OSA - 08/31/2023 9:18 AM EST I mailed appt to pt. * Telephone Encounter - Sarah Bañuelos LPN - 08/31/2023 8:17 AM EST Wednesday at 11:20 AM - please mail * Telephone Encounter - Yola Rdz OSA - 08/23/2023 8:34 AM EST Patient needs appt for 6 m return. January. Kelle at . documented in this encounter Plan of Treatment Upcoming Encounters Date Type Department Care Team (Late st Contact Info) Description 11/30/2023 3:00 PM EDT Office Visit [facility] Surgery [address] [place] [address] Margarita Handy MD [address] [place] [address] 01/05/2024 3:00 PM EDT Office Visit Family Medicine [address] [place] [phone] Jeffy Moreno MD [address] [place] [address] [place] [address] 02/16/2024 11:20 AM EDT Office Visit Dermatology [address] [place] [address] Kelle Lott PA-C [address] [place] [address] [place] [address] Health Maintenance Due Date Last Done Comments [...]
--- OUTSIDE RECORDS SUMMARY | 2023-09-29 13:55 | External Medical Summary | Summary of Care ---
Author Name Unknown Organization [facility] [address] [facility] [address] Phone [phone] Care Team Providers Care Dermatopathologist Name Role Phone Unavailable Primary Care Provider Unavailabl e Reason for Visit * Reason Comments Outpatient Testing Encounter Details Date Type Department Care Team (Late st Contact Info) Description 07/01/2023 3:40 PM EST Laboratory Laboratory [address] [place] [phone] [address] [place] [address] Screening for diabetes mellitus (DM); High triglycerides Allergies No known active allergiesdocumented [...] the morning. 30 Tablet 5 07/01/2023 Active documented as of this encounter (statuses [...] Care Team (Late st Contact Info) Description 07/15/2023 3:00 PM EST Nurse Only Ancillary [address] [place] [address] Goldsmith, Nurse [address] [place] [address] 01/05/2024 3:00 PM EDT Office Visit Family Medicine [address] [place] [phone] Jeffy Moreno MD [address] [place] [address] [place] [address] 01/26/2024 8:00 AM EDT Office Visit Dermatology [facility] [address] [place] [address] Kelle Lott PA-C [address] [place] [address] [place] [phone] Pending Results Name Type Priority Associated Diagnoses Date /Time COMPREHENSIVE METABOLIC PANEL Lab Routine Screening for diabetes mellitus (DM) 07/01/2023 3:17 PM EST LIPID PANEL WITH DIRECT LDL IF TG IS HIGH Lab Routine High triglycerides 07/01/2023 3:17 PM EST Health Maintenance Due Date Last Done Comments [...] as of this encounter Visit Diagnoses Diagnosis Screening for diabetes mellitus (DM) Screening for diabetes mellitus High triglycerides Pure hyperglyceridemia documented in this encounter
--- OUTSIDE RECORDS SUMMARY | 2023-09-29 13:55 | External Medical Summary ---
Author Name Unknown Address Unknown Organization [id number]:[place] [facility] [facility] [place] [address] [place] [address] Laboratory Report Ordering Provider Test Date Status JACINDA REY 07/01/2023 15:17:50 Final Observation Date Value Abnormality Reference (Units ) Status LDL, (direct) 07/01/2023 15:17:50 117 <=129 (mg/dL) Final LDL Cholesterol Reference Ra nges (mg/dL):
<70 Target level for high risk ASCVD patient
<100 Optimal for general population
100-129 Near optimal for general population
130-159 Borderline high
160-189 High
>=190 Very high Performing Location LABORATORY [facility] - [address] [place] [address]
--- OUTSIDE RECORDS SUMMARY | 2023-09-29 13:55 | External Medical Summary ---
Author Name Unknown Address Unknown Organization [id number]:[place] [facility] [place] [address] [facility] [address] [place] [address] Laboratory Report Ordering Provider Test Date Status JACINDA REY 07/01/2023 15:17:50 Final Observation Date Value Abnormality Reference (Units ) Status BUN 07/01/2023 15:17:50 17 6-20 (mg/dL) Final Creatinine 07/01/2023 15:17:50 1.0 0.6-1.2 (mg/dL) Final Glomerular filtration rate/1.73 sq M.predicted [Volume Rate/Area] in Serum, Plasma or Blood by Creatinine-based formula (CKD-EPI) 07/01/2023 15:17:50 >90 >=60 (mL/min) Final eGFR is calculated based on the CKD-EPI 2020 equation SODIUM 07/01/2023 15:17:50 138 135-146 (m mol/L) Final Potassium 07/01/2023 15:17:50 4.2 3.5-5.1 (m mol/L) Final Cl 07/01/2023 15:17:50 103 98-107 (mm ol/L) Final CO2 07/01/2023 15:17:50 24 22-32 (mmo l/L) Final Anion gap 07/01/2023 15:17:50 11 7-15 (mmol /L) Final Glucose 07/01/2023 15:17:50 85 70-120 (mg /dL) Final Albumin 07/01/2023 15:17:50 4.7 3.8-5.0 (g /dL) Final AST (Aspartate aminotransferase) 07/01/2023 15:17:50 21 10-50 (U/L) Final Alk Phos 07/01/2023 15:17:50 69 35-130 (U/ L) Final Bilirubin, Total 07/01/2023 15:17:50 0.5 <=1 .2 (mg/dL) Final Calcium 07/01/2023 15:17:50 9.7 8.4-10.2 ( mg/dL) Final Protein 07/01/2023 15:17:50 6.7 6.0-8.3 (g /dL) Final ALT (Alanine aminotransferase) 07/01/2023 15:17:50 44 10-50 (U/L) Final Performing Location [facility] [facility] [place] [facility] [address] [facility] [address]
--- OUTSIDE RECORDS SUMMARY | 2023-09-29 13:55 | External Medical Summary ---
Author Name Unknown Address Unknown Organization K01:LAB[facility]ATORY [facility] [place] - [address] [facility] [address] [facility] [address] Laboratory Report Ordering Provider Test Date Status JACINDA REY 07/01/2023 15:17:50 Final Observation Date Value Abnormality Reference (Units ) Status Triglyceride 07/01/2023 15:17:50 858 Above high normal <=174 (mg/dL) Final Triglyceride Reference Range s (mg/dL):
<150 Acceptable
150-174 Borderline high
175-499 High
>=500 Very high Cholesterol 07/01/2023 15:17:50 288 Above high normal <200 (mg/dL) Final Total Cholesterol Reference Ranges (mg/dL):
<200 Desirable
200-239 Borderline high
>=240 High HDL 07/01/2023 15:17:50 32 Below low normal >39 (mg/dL) Final HDL Cholesterol Reference Ra nges (mg/dL):
>=60 High (Desirable)
<50 Low (Undesirable) For Females
<40 Low (Undesirable) For Males NON-HDL CHOLESTEROL 07/01/2023 15:17:50 256 Above high normal <=159 (mg/dL) Final Non-HDL Cholesterol Referenc e Range (mg/dL):
<100 Target level for high risk ASCVD patient
<130 Optimal for general population
130-159 Near optimal for general population
160-189 Borderline High
190-219 High
>=220 Very High Performing Location [facility] - [address] [facility] [address]
--- OUTSIDE RECORDS SUMMARY | 2023-09-29 13:55 | External Medical Summary | Summary of Care ---
Author Name Unknown Organization [facility] Address [address] [place] [address] Phone [phone] Care Team Providers Care Supervisor Name Role Phone Unavailable Primary Care Provider Unavailabl e Reason for Visit * Reason Onset Date Comments MyCode Consent 08/23/2023 Encounter Details Date Type Department Care Team (Late st Contact Info) Description 08/23/2023 Orders Only Outcomes Research Department [address] [place], [place] [id number] Shabnam Mendez CHRA MyCode Research Other*[id number]* Allergies No known active allergiesdocumented as of [...] on file documented as of this encounter Progress Notes * Shabnam Mendez CHRA - 08/23/2023 8:17 AM EST MyCode Consent Documentation Balbir Brannon Alaniz provided consent/authorization to participate in the [employer]. documented in this encounter Plan of Treatment Upcoming Encounters Date Type Department Care Team (Late st Contact Info) Description 01/05/2024 3:00 PM EDT Office Visit Family Medicine [address] [place] [phone] Jeffy Moreno MD [address] [place] [address] [place] [address] Scheduled Orders Name Type Priority Associated Diagnoses Orde r Schedule MYCODE INITIAL ADULT Lab Routine MyCode Research Other*[id number] Expected: 08/23/2023 (Approximate), Expires: 09/11/2024 Health Maintenance Due Date Last Done Comments [...] as of this encounter Visit Diagnoses Diagnosis MyCode Research Other*[id number]- Primary documented in this encounter
--- OUTSIDE RECORDS SUMMARY | 2023-09-29 13:55 | External Medical Summary | Summary of Care ---
Author Name Unknown Organization [facility] Address [address] [facility] [place] [address] Phone [phone] Care Team Providers Care Rand Cementer Name Role Phone Unavailable Primary Care Provider Unavailabl e Reason for Visit * Reason Onset Date Comments Blood Pressure Check 07/15/2023 Encounter Details Date Type Department Care Team (Late st Contact Info) Description 07/15/2023 Telephone Family Medicine [address] [place] [phone] Rupal Lutz PA-C [address] [place] [address] [place] [id number] Blood Pressure Check Allergies No known active allergiesdocumented as of this encounter (statuses as of 07/16/2023) Medications Medication Sig Dispensed Refills Start Date End Date Status Cetirizine HCl 10 MG Oral Tablet (ZyrTEC Allergy) Take 1 Tablet by mouth in the morning. 0 06/05/2020 Active Fenofibrate 145 MG Oral Tablet (Tricor)Indications:Hig h triglycerides Take 1 Tablet by mouth in the morning. 30 Tablet 5 07/01/2023 Active documented as of this encounter (statuses as of 07/16/2023) Active Problems Problem Noted Date Diagnosed Date Hypertriglyceridemia 06/05/2020 Lactose intolerance in adult 08/24/2016 Tobacco use disorder 06/24/2005 Other allergic rhinitis 11/20/2004 Overview: ICD-10 update of inactive term documented as of this encounter (statuses as of 07/16/2023) Resolved Problems Problem Noted Date Diagnosed Date Resolved Date Costochondritis 05/05/2013 08/24/2016 CHR ALLRG CONJUNCTIV NEC 06/24/2005 NONE 07/17/2004 06/24/2005 DISACCHARIDASE DEF-MALAB 12/29/2002 Spasm of muscle 12/29/2002 08/24/2016 documented as of this encounter (statuses as of 07/16/2023) Immunizations Name Administration Dates Next Due Pneumococcal [...] encounter Miscellaneous Notes * Telephone Encounter - Abelino Hernandes LPN - 07/16/2023 9:27 AM EST Pt aware via mychart * Telephone Encounter - Rupal Lutz PA-C - 07/15/2023 4:06 PM EST BP borderline. We will continue to keep an eye on it. Can monitor at home, as well. * Telephone Encounter - Tamra Dong CMA - 07/15/2023 3:10 PM EST Patient came in for blood pressure check. No symptoms. Does state he is nervous about blood pressure check. I used the Dynmap because I had hard time hearing and it got 137/83. Patient's home BP cuffread 137/96. I told him we would call him with further directions if needed. documented in this encounter Plan of Treatment Upcoming Encounters Date Type Department Care Team (Late st Contact Info) Description 01/05/2024 3:00 PM EDT Office Visit Family Medicine [address] [place] [phone] Jeffy Moreno MD [address] [place] [address] [place] [phone] 01/26/2024 8:00 AM EDT Office Visit Dermatology [address] [place] [address] Kelle Lott PA-C [address] [place] [address] [place] [id number] Health Maintenance Due Date Last Done Comments [...]
--- OUTSIDE RECORDS SUMMARY | 2023-09-29 13:55 | External Medical Summary | Summary of Care ---
Author Name Unknown Organization [facility] Address [address] [facility] [address] Phone [phone] Care Team Providers Care Automatic Pattern Edger Name Role Phone Unavailable Primary Care Provider Unavailabl e Reason for Visit * Reason Comments Blood Pressure Check Encounter Details Date Type Department Care Team (Late st Contact Info) Description 07/15/2023 3:00 PM EST Nurse Only Ancillary [address] [place] [phone] [place], Nurse [address] [place] [address] Blood Pressure Check Allergies No known active allergiesdocumented as of this encounter (statuses as of 07/15/2023) Medications Medication Sig Dispensed Refills Start Date End Date Status Cetirizine HCl 10 MG Oral Tablet (ZyrTEC Allergy) Take 1 Tablet by mouth in the morning. 0 06/05/2020 Active Fenofibrate 145 MG Oral Tablet (Tricor)Indications:Hig h triglycerides Take 1 Tablet by mouth in the morning. 30 Tablet 5 07/01/2023 Active documented as of this encounter (statuses as of 07/15/2023) Active Problems Problem Noted Date Diagnosed Date Hypertriglyceridemia 06/05/2020 Lactose intolerance in adult 08/24/2016 Tobacco use disorder 06/24/2005 Other allergic rhinitis 11/20/2004 Overview: ICD-10 update of inactive term documented as of this encounter (statuses as of 07/15/2023) Resolved Problems Problem Noted Date Diagnosed Date Resolved Date Costochondritis 05/05/2013 08/24/2016 CHR ALLRG CONJUNCTIV NEC 06/24/2005 NONE 07/17/2004 06/24/2005 DISACCHARIDASE DEF-MALAB 12/29/2002 Spasm of muscle 12/29/2002 08/24/2016 documented as of this encounter (statuses as of 07/15/2023) Immunizations Name Administration Dates Next Due Pneumococcal [...] Sign Reading Time Taken Comments Blood Pressure 137/83 07/15/2023 3:06 PM EST Pulse 77 07/15/2023 3:06 PM EST Temperature - - Respiratory Rate - - Oxygen Saturation - - Inhaled Oxygen Concentration - - Weight - - Height - - Body Mass Index - - documented in this encounter Nursing Notes * Tamra Dong CMA - 07/15/2023 2:58 PM EST Balbir Alaniz presented for blood pressure check per provider orders. The results were charted inVital Signs. The blood pressure was obtained using the right arm in the sitting position using a adult large cuff. Patient brought home cuff to be verified today. Home cuff BP was 137/96 Tamra Dong CMA 07/15/2023 2:58 PM documented in this encounter Plan of Treatment Upcoming Encounters Date Type Department Care Team (Late st Contact Info) Description 01/05/2024 3:00 PM EDT Office Visit Family Medicine [address] [place] [phone] Jeffy Moreno MD [address] [place] [address] [place] [phone] 01/26/2024 8:00 AM EDT Office Visit Dermatology [address] [place] [address] Kelle Lott PA-C [address] [place] [address] [place] [address] Health Maintenance Due Date Last Done Comments [...]
--- OUTSIDE RECORDS SUMMARY | 2023-09-29 13:55 | External Medical Summary | Summary of Care ---
Author Name Unknown Organization [facility] Address [address] [place] [address] Phone [phone] Care Team Providers Care Circular Distributor Name Role Phone Unavailable Primary Care Provider Unavailabl e Reason for Visit * Reason Onset Date Comments Appointment 08/23/2023 Encounter Details Date Type Department Care Team (Late st Contact Info) Description 08/23/2023 Telephone [facility] [address] [place] [address] Margarita Handy MD [address] [place] [address] Appointment Allergies No known active allergiesdocumented as of [...] encounter Miscellaneous Notes * Telephone Encounter - Cheri Montague OSA - 08/24/2023 10:42 AM EST Spoke to patient and scheduled for an OPS/excision with DR Handy at a 3pm in October * Telephone Encounter - Margarita Handy MD - 08/23/2023 5:37 PM EST Yes, okay to schedule with me. Margarita Handy MD 08/23/2023 * Telephone Encounter - Cheri Montague OSA - 08/23/2023 9:[address] Handy please review photo, ok to book with you in next 3pm OPS spot or need to go to ocular plastic surgery? * Telephone Encounter - Cheri Montague OSA - 08/23/2023 9:17 AM EST 1. Epidermoid inclusion cyst on L lateral canthus-Pt desires excision of lesion, is aware he will be called to schedule the [facility] OPS in [facility]. documented in this encounter Plan of Treatment Upcoming Encounters Date Type Department Care Team (Late st Contact Info) Description 11/30/2023 3:00 PM EDT Office Visit [facility] Surgery [address] [address] Margarita Handy MD [address] [place] [address] 01/05/2024 3:00 PM EDT Office Visit Family Medicine [address] [phone] Jeffy Moreno MD [address] [place] [address] [place] [address] Health Maintenance Due Date Last Done Comments [...]
--- NOTE | 2023-09-29 15:49 | Cardiology Consultation ---
Date of Consultation September 29, 2023 Assessment & Plan (1) Chest pain: (2) PNA (pneumonia): (3) Dyslipidemia: Plan Assessment: 38 year-old male presents with multiple intermittent episodes of chest pain, unclear etiology. Non-specific EKG changes, but no new or acute ST-T wave abnormality, negative troponin, cardiac risk factors and new diagnosis of pneumonia Plan: 1. chest pain -Etiology unclear; however patient's symptoms are concerning and he does have other risk factors for coronary disease -Troponin negative x2 -EKG with non-specific changes showing T wave inversion in his lead III and V3 leads. -Positive tobacco use and history of significantly elevated triglycerides, improved with diet, exercise and weight loss. Current Triglycerides 245. -Echocardiogram pending to assess overall structure and function -Will plan for stress echocardiogram today. -BP well controlled. -If stress echocardiogram is negative and no acute findings on resting echo, patient is ok for discharge from a cardiac standpoint. -Would recommend resuming statin therapy for lipid management. 2. Pneumonia -Per management of primary team. -Vital signs stable. Sp02 98% on room air. 3. Dyslipidemia: Lipid panel continues to show elevated triglycerides although marked improvement with diet, exercise and weight loss Pending cardiac studies would recommend restarting statin therapy with repeat lipid panel in 6 months. Further recommendations pending testing. Case has been discussed with Dr. Shipman. Further recommendations regarding plan of care as per his assessment. I spent a total of 40 minutes on the date of service in preparation, delivery, documentation of the care provided to the patient excluding any time spent in the performance of separately billed services. [facility] Cardiology [facility] Supervising Physician Co-Signing Physician Notes I have reviewed the advance practitioner's documentation, and I agree with, and take responsibility for the plan of care. 38-year-old male presented to the emergency department with chest discomfort. ECG with nonspecific T wave abnormality not significantly changed compared to pr ior ECG dating back to 2012. Discomfort resolved overnight. He has been pain- free throughout the day. Telemetry reveals sinus rhythm. No dysrhythmia. Carries history of dyslipidemia and hypertriglyceridemia. Currently unmedicated as he has improved his lipid panel through dietary modifications and weight loss. PE: VSS. Gen: NAD, AAOx3. Heart: Regular rhythm. Normal S1S2. No murmur. Lungs: Clear bilateral, no rales, rhonchi, wheeze. Extremities: No edema. A/P: 38-year-old male admitted with atypical chest discomfort. No evidence of acute coronary syndrome. Risk factors include dyslipidemia and tobacco use. Chronic ECG abnormalities noted. Recommend exercise stress echocardiography for further evaluation. Addendum: Exercise stress echo negative for inducible ischemia at high workload. No anginal symptoms with exercise. Study indicates low cardiovascular risk. Smoking cessation advised. No further inpatient cardiac testing or intervention recommended at this time. Cardiology will sign off. Thank you for allow me to participate in the care of your patient. I spent a total of 25 minutes on the date of service in preparation, delivery, and documentation of the care provided to this patient, excluding any time spent in the performance of separately billed services. History of Present Illness Reason for Consultation: HPI: patient is a 38 year old male with PMHx significant for high triglycerides and tobacco use that presented to the ED with chest pain x1 day. patient states that he woke yesterday morning and began to experience an intense chest pressure radiating to his neck an jaw along with a feeling of shortness of breath and inability to take a "deep breath". He got out of bed and began to get ready for work, reporting that the symptoms had subsided. Patient went on about his day, but by evening started to feel the chest pressure again, midsternal radiating into the neck and jaw, taking his breath away which prompted him to present to the ED. He reports that the episodes lasted less than and hour and his discomfort had begun to subside before making it to the ED. He denies any prior cardiac history for himself although admits last year his triglycerides were around 900. he reports most recent labs have improve to the 200's with diet and exercise in addition to a 30lb weight loss. Reports family history of high triglycerides, HTN and father approx 1 year ago from a [place]. EKG on admission shows SR with non-specific T wave inversion noted in anterior leads. This was cited on a previous EKG dating back to 2016 per review of epic record. Troponin negative x2 chest xray suggest mild airspace opacities in the left lung base suggestive of pneumonia. patient denies any recent acute cold or flu like symptoms. is present at bedside and reports that their children all had Influenza B in the past 2 weeks. Review of telemetry shows NSR, rates 60-70's. patient is resting comfortably in bed at this time. Echocardiogram pending. Attending Physician: Fabián De La Rosa MD Allergies Allergy/AdvReac Type Severity Reaction Status Date / Time milk Allergy Intermediate GI SYMPTOMS Verified 08/16/16 06:46 bee venom protein (honey bee) Allergy Unknown swelling Verified 08/16/16 06:46 Home Medications Medication Instructions Recorded Confirmed Type No Known Home Medications 09/29/23 09/29/23 History Patient History Medical History (Updated 09/29/23 @ 15:57 by Vasquez Shipman DO) Tobacco use PNA (pneumonia) Chest pain Dyslipidemia Surgical History (Updated 09/29/23 @ 03:55 by Nader Cherry PA-C) No significant past surgical history Family History (Updated 09/29/23 @ 09:59 by [facility]) Mother Diabetes Father Coronary heart disease Heart disease Hypertension Dyslipidemia Social History (Updated 09/29/23 @ 10:00 by [facility]) Smoking Status: Current every day smoker Tobacco Type: Cigarettes Age Started Using Tobacco: 14; packs per day: 1; Cigarettes Per Day: 10; Second Hand Exposure: No; Do You Dip or Chew Tobacco: No; Tobacco Cessation Education Requested by Patient: Yes Hx Alcohol Use: Yes Alcohol type: beer Hx Substance Use: No Preferred Language: Albanian Communication Ability: Effective Radio Talk Show Host Required: No Beliefs That Will Affect Care: None Current Living Situation: Spouse Other Information That Helps Us Care for You: No Feels Safe at Home: Yes Safety Concerns: Feels Safe At This Time Review of Systems Review of Systems: All systems reviewed & are unremarkable except as noted in HPI & below Physical Exam Constitutional: well developed and well nourished; no acute distress Neck: normal visual inspection and trachea midline Respiratory: normal respiratory effort; no respiratory distress and no cough Auscultation: + diminished lung sounds (diminished in left lower lung base) Cardiovascular: RRR, no murmur, no edema Heart Sounds: normal S1 and normal S2; no murmur Vessels: no JVD Extremities: no edema Skin: no rashes, warm and dry Psychiatric: A+Ox3, euthymic affect Results & Data Vital Signs (Past 12 Hours) Vital Signs Temp Pulse Pulse Resp BP BP Pulse Ox 09/29/23 12:38 36.7 C 75 20 130/75 98 09/29/23 09:20 62 09/29/23 06:30 69 18 147/103 H 96 09/29/23 05:30 63 20 139/98 95 09/29/23 05:00 61 22 160/103 H 94 09/29/23 04:54 64 09/29/23 04:47 69 18 141/89 H 92 09/29/23 03:30 69 18 133/87 96 09/29/23 03:29 68 18 133/87 O2 Del Method 09/29/23 12:38 Room Air 09/29/23 09:20 09/29/23 06:30 Room Air 09/29/23 05:30 09/29/23 05:00 09/29/23 04:54 09/29/23 04:47 09/29/23 03:30 09/29/23 03:29 Laboratory Results Cardiac Enzymes 09/28/23 09/29/23 09/29/23 Range/Units 23:57 02:11 08:45 AST 11 L (13-39) U/L Troponin I High Sens < 2.3 2.8 < 2.3 (0-20) pg/ml 09/29/23 Range/Units 14:19 AST (13-39) U/L Troponin I High Sens < 2.3 (0-20) pg/ml Coagulation 09/28/23 Range/Units 23:57 PT 10.4 (9.0-12.0) Seconds APTT 33 H (21-31) Seconds Lipids 09/29/23 Range/Units 08:45 Triglycerides 245 H (0-150) mg/dl Cholesterol 200 (0-200) mg/dl HDL Cholesterol 32 mg/dl Cholesterol/HDL Ratio 6.3 H (0-5) CBC 09/28/23 Range/Units 23:57 WBC 7.77 (4.8-10.8) K/ul RBC 5.49 (4.70-6.10) M/uL Hgb 15.0 (14.0-18.0) g/dl Hct 44.6 (42.0-52.0) % Plt Count 238 (130-400) K/uL Neut # (Auto) 4.71 (1.40-6.50) K/uL Lymph # (Auto) 2.24 (1.20-3.40) K/uL Harris # (Auto) 0.59 (0.11-0.59) K/uL Eos # (Auto) 0.16 (0.00-0.50) K/uL Baso # (Auto) 0.05 (0.00-0.20) K/uL Comprehensive Metabolic Panel 09/28/23 Range/Units 23:57 Sodium 137 (136-145) mmol/L Potassium 3.7 (3.5-5.1) mmol/L Chloride 108 H (98-107) mmol/L Carbon Dioxide 22 (21-32) mmol/L BUN 18 (6-23) mg/dl Creatinine 0.92 (0.6-1.4) mg/dl Glucose 97 (70-99(Fasting)) mg/dl Calcium 9.4 (8.6-10.3) mg/dl AST 11 L (13-39) U/L ALT 17 (7-52) U/L Alkaline Phosphatase 63 (34-104) U/L Total Protein 6.9 (6.0-8.3) gm/dl Albumin 4.3 (3.4-5.0) gm/dl Intake and Output 09/29/23 09/29/23 09/29/23 06:59 14:59 22:59 Intake Total 1000 / 1000 150 / 150 Balance 1000 / 1000 150 / 150 Intake: IV 1000 / 1000 150 / 150 Doxycycline Hyclate 100 mg In 100 / 100 Dextrose 5% Mini-B 100 ml @ 50 mls/hr IV Q12H ADONIS Rx#:[id number] Sodium Chloride 0.9% 1,000 ml @ 1000 / 1000 999 mls/hr IV .Q1H1M ADONIS Rx#: [id number] SODIUM 2,000 mg In 50 / 50 Dextrose 5 % Mini-B 50 ml @ 100 mls/hr IV Q24H ADONIS Rx#: [id number] Other: # Unmeasured Voids 1 Weight 128.7 kg 128.7 kg Weight Measurement Method Chair Scale [facility] in [facility] Patient Weight 09/30/23 06:59 Weight 128.7 kg (1) Chest pain Chest pain type: other chest pain Qualified Code(s): R07.89 - Other chest pain
[2023-09-29] MEDS: NICOTINE 21 MG/24 HR TDSY TD SCH (19:24)
[2023-09-29] MEDS: HEPARIN SOD 5,000 UNIT/0.5 ML VIAL SQ SCH (20:25)
[2023-09-30 07:00] LABS: Hematocrit (blood only) 44.4 % (42.0-52.0); Hemoglobin 14.6 g/dl (14.0-18.0); Mean Corpuscular Hemoglobin 26.7 pg (25.0-34.0); Mean Corpuscular Hgb Conc 32.9 g/dL (32.0-36.0); Mean Corpuscular Volume 81.3 fL (80.0-100.0); Mean Platelet Volume 10.4 fL (9.4-12.4); Platelet Count 215 K/uL (130-400); RDW Coefficient of Variation 13.5 % (11.5-14.5); RDW Standard Deviation 39.5 fL (36.4-46.3); Red Blood Count 5.46 M/uL (4.70-6.10); White Blood Count 6.75 K/ul (4.8-10.8)
[2023-09-30 07:13] LABS: BUN Creatinine Ratio 11.7 (10-20); Calcium 9.4 mg/dl (8.6-10.3); Creatinine Clr Calc Pharmacy 138.5 ml/min; Est GFR (African American) 106.3 ml/min; Est GFR (Non-African American) 91.7 ml/min; Phosphorus 3.4 mg/dl (2.5-4.9); Potassium 4.2 mmol/L (3.5-5.1)
[2023-09-30] MEDS: FENOFIBRATE NANOCRYSTALLIZED 145 MG TABLET PO SCH (08:41)
--- NOTE | 2023-09-30 11:15 | Discharge Summary ---
Date of Service September 30, 2023 Admission HPI Per Admitting Provider Mr. Alaniz is a 38-year-old male who presented to the ED with complaints of chest pain that started yesterday, 09/21 in the morning when he woke up. He describes it as anterior crushing chest pain with radiation into his bilateral jaw and bilateral shoulder blades; worsening with deep breathing. 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 He went to bed last evening and started to feel aching in his anterior chest prompting them to drive to the emergency room. In the ED no leukocytosis, D-dimer negative, troponin negative x 2, bio fire negative, otherwise electrolytes unremarkable. Normotensive and on room air. Reports that his 10-year-old daughter currently has influenza and his son is sick as well without formal testing. Currently smoking 1/2 to 1 pack/day x 20-year history. Has intentionally had a 20 pound weight loss since June 2023 with diet modifications based on his most recent lipid panel in June. Lipid panel significant 06/24; triglyceride 858, HDL 32, LDL 117. He is not on any antihypertensives or lipid- lowering agents. He has taken fenofibrate in the past but has not taken it consistently over the past 6 months. Significant family history of AMI; father at 64 years old. Patient mother has DM 2. Chest x-ray reveals opacities left lower lung base suggestive of possible pneumonia. ECG normal sinus rhythm with nonspecific T wave inversion anterior leads. In the ED patient received Nitropaste 1 "and loaded with ASA 324 mg. Patient denies headache, dizziness, visual or auditory changes, current chest pain, shortness of breath, orthopnea, N/V/D, abdominal pain or tenderness, swelling, urinary or bowel changes, recent falls or trauma. In the room, patient sitting upright in his hospital bed in no apparent distress and does not appear toxic. Normotensive without tachycardia and on room air. Currently rating chest pain 1 out of 10 with deep inspiration. Patient will be admitted for and evaluated for chest pain. Will trend troponin level, start on doxycycline plus Rocephin for coverage for pneumonia, which may have provoked his chest pain; adjust ABX based on sputum and blood cultures. Repeat lipid panel. Keep n.p.o. for now pending cards consult. Will involve cardiology given chest pain, increased risk factors including obesity, smoking, lipid panel results and increased familial cardiac risk. Admit to PCU pending possible cardiac intervention. Admission Exam Per Admitting Provider Neuro: AAOx4, PERRLA, no aphagia, memory changes, CNII-XII grossly intact HEENT: head normocephalic, moist mucus membranes CV: S1/S2, (-) M/G/R, (-) edema, cap refill < 3 seconds Resp: On RA; Lung sounds decreased LLL base GI: Abdomen S/NT/ND, Ax4 bowel sounds, (-) CVA tenderness Musculoskeletal: 5/5 B/L UE strength, 5/5 B/L LE strength. No gait disturbance Skin: (-) rashes , (-) erythema. Psych: euthymic mood Principal Diagnosis Chest pain rule out ACS Left lower lobe pneumonia Dyslipidemia Tobacco use Discharge Exam GENERAL: Alert and oriented x3. NAD, on RA. HEENT: No pallor, no icterus. Pupils equal, round and reactive to light. Oral mucosa moist. NECK: No JVD, no neck masses. HEART: S1 and S2 heard. Regular rate and rhythm. No murmur, no gallop. RESPIRATORY SYSTEM: Normal AP diameter. No accessory muscle use. No wheezing, no crackles. ABDOMEN: Soft, bowel sounds present, nontender, no distention. CENTRAL NERVOUS SYSTEM: No facial droop. Speech is clear. Obeys simple commands. Moves extremities. EXTREMITIES: No edema, no erythema seen. Discharge Data Allergies Allergy/AdvReac Type Severity Reaction Status Date / Time milk Allergy Intermediate GI SYMPTOMS Verified 08/16/16 06:46 bee venom protein (honey bee) Allergy Unknown swelling Verified 08/16/16 06:46 Consultations 09/29/23 07:03 ED Decision to Admit Stat 09/29/23 07:41 Consult Cardiology Routine Hospital Course (1) Chest pain: (2) PNA (pneumonia): (3) Dyslipidemia: (4) Tobacco use: (5) GERD (gastroesophageal reflux disease): Plan 38-year-old male with PMH of mixed dyslipidemia/fenofibrate noncompliance, tobacco use presented to the ED with typical chest pain/pressure-like sensation radiating to neck and jaw. Troponin were negative, EKG with no acute ST or T changes, stress test with no inducible ischemia, echo with normal LV function. Cardiology evaluated, appreciate recommendation. Patient counseled extensively regarding weight loss and mixed lipidemia management. Patient wants to go back on his fenofibrate, does not want to be started on statin at this point in time, he would like to follow-up with lipid panel in 3 months and then decide on statin at that point in time. Compliance with fenofibrate is stressed. Regarding pneumonia, patient will be discharged on short course of antibiotic to complete the course of treatment. Patient needs to follow-up with CXR in about 6 weeks time, same has been communicated to patient and his at bedside. Extensively counseled regarding smoking cessation, patient agreeable, will be sending nicotine patch, patient advised to follow-up with PCP office for further tapering doses on nicotine patches. He is being discharged home with following instruction at the point of discharge: Follow-up with your primary care physician within a week time and likely you will need labs CBC/CMP/magnesium/phosphorus. You have a history of dyslipidemia, you had been prescribed fenofibrate in the past, it is very appreciable that you lost significant weight and your lipid levels are better looking but still you need to maintain compliance with fenofibrate. As discussed at the bedside you will need a repeat lipid panel in about 3 months time and you can further discuss with your PCP office regarding adding statin to your lipid treatment. You were evaluated for chest pain, you underwent stress test which was negative for any ischemia. Chest x-ray in the hospital was suggestive of left lower lobe pneumonia, you will be given short course of antibiotic since you had sick contacts at home. You will need to repeat chest x-ray in about 6 weeks time to document resolution of this pneumonia. Strongly encourage quitting smoking, you will be discharged on nicotine patch, continue to follow-up with your PCP office for further prescription on tapering doses of nicotine patch. Take your medications as prescribed. Please make sure that you are able to get your medications today by calling your pharmacy before you leave the hospital so that your treatment continuity is not broken. Home Health Attestation I certify that this patient is under my care and that I, or a physicians teresa hoff working with me, had a face to-face encounter that meets the [id number] encounter requirements with this patient. The encounter with the patient was in whole, or in part, for the following medical condition, which is the primary reason for home health care (list medical condition): I certify that, based on my findings, the following services are medically necessary home health services: My clinical findings support the need for the above services because: Further, I certify that my clinical findings support that this patient is homebound (i.e. absences from home require considerable and taxing effort and are for medical reasons or [facility] or infrequently or of short duration when for other reasons) because: Certification for Home Health Services: Based on the above findings, I certify that this patient is confined to the home and needs intermittent shelter care, physical therapy and/or speech therapy or continues to need occupational therapy. The patient is under my care, and I have initiated the establishment of the plan of care. This patient will be followed by a physician who will periodically review the plan of care. Total Time Total Time Spent Total Time Spent (In Minutes): 45 Discharge Plan Discharge Items Reason For Visit: CHEST PAIN Discharge Diagnosis: Chest pain rule out ACS Left lower lobe pneumonia Dyslipidemia Tobacco use Activity: Resume your previous activity Non-emergency contact: Primary Care Provider Call non-emergency contact if: you have any medication questions, your symptoms worsen and your temperature is above 101.5 Follow-up/Referrals: PCP,NO [Primary Care Provider] - Diet: Heart Healthy Addtl Attending Provider Instructions: Follow-up with your primary care physician within a week time and likely you will need labs CBC/CMP/magnesium/phosphorus. You have a history of dyslipidemia, you had been prescribed fenofibrate in the past, it is very appreciable that you lost significant weight and your lipid levels are better looking but still you need to maintain compliance with fenofibrate. As discussed at the bedside you will need a repeat lipid panel in about 3 months time and you can further discuss with your PCP office regarding adding statin to your lipid treatment. You were evaluated for chest pain, you underwent stress test which was negative for any ischemia. Chest x-ray in the hospital was suggestive of left lower lobe pneumonia, you will be given short course of antibiotic since you had sick contacts at home. You will need to repeat chest x-ray in about 6 weeks time to document resolution of this pneumonia. Strongly encourage quitting smoking, you will be discharged on nicotine patch, continue to follow-up with your PCP office for further prescription on tapering doses of nicotine patch. Take your medications as prescribed. Please make sure that you are able to get your medications today by calling your pharmacy before you leave the hospital so that your treatment continuity is not broken. Pending Studies at Discharge: No Stand-Alone Forms: My [facility], Smoking Cessation Medications and DC Order Prescriptions: New nicotine [Nicoderm CQ] 21 mg/24 hr Patch 24 Hour 21 mg transdermal QAM Qty: 28 0RF fenofibrate nanocrystallized 145 mg Tablet 145 mg PO QAM Qty: 30 0RF doxycycline hyclate 100 mg tablet 100 mg PO BID 4 Days Qty: 7 0RF cefdinir 300 mg capsule 300 mg PO BID 3 Days Qty: 6 0RF Probiotic 3 billion cell capsule 3,000 mmu cells PO DAILY 7 Days Qty: 7 0RF Rx Instructions: administer with a meal Admission Data Admit Date/Time: 09/29/23 07:41 Attending Provider: Fabián De La Rosa Admit Provider: Fabián De La Rosa Primary Care Provider: PCP,NO Other Providers: Shannon Adame; Noni Swan I.; Lenora Garza; Chayito Chávez; Ernestina Sheppard; Kelle Telles; Lizeth Meng; Lucas Marques; Khanh Fernández; Zach Person; Chata Olivares; Tucker Bowie; Liz Downey; Claudette Dixon; Tracy Rosas; Caden Villalobos; Genevieve Helm; Corazon Chanel; Florence Wagoner I.; Jeffy Moreno; Fabián De La Rosa; Morris Montes De Oca; Morales Darnell; Davis Conde; Margarita Yeager; Isidra Allan; Vasquez Shipman
== END 2023-09-30 13:08 | disposition home or self-care (01) ==
LOC: ED 23:37 → EDINP 23:37 → 2S 09-29 21:36